=== PATIENT | male | born 1940 | race Caucasian/White ===

== ENCOUNTER 2017-06-21 11:17 | Emergency (ER) | payer OTHER ==
[~2017-06-21] VITALS: Ht 172.7 cm; Wt 110.1 kg
[~2017-06-21 11:17] MED LIST: ASPIRIN325 MG PO; Cardizem CD,Cartia X PO; Lanoxin,Digitek PO; PRINZIDE 20-121 EACH PO; TRAMADOL HCL50 MG PO; Tessalon Perle PO; Tylenol Regular Stre PO; ZITHROMAX500 MG PO; Zestoretic,Prinzide PO; [UNRECOGNIZED DRUG - OTHER] PO; predniSONE PO
[2017-06-21 12:39] LABS: HEMATOCRIT 40.2 % (38.0-50.0); HEMOGLOBIN 13.9 G/DL (12.5-16.6); MCH 31.4 PG (29.0-34.0); MCHC 34.6 G/DL (30.0-36.0); NRBC (%) 0.8 /100 WBC (0-0); PLATELET COUNT 145 K/uL (156-360); RBC DIS.WIDTH-SD 48.5 % (39-53); RED BLOOD COUNT 4.42 M/uL (4.00-5.50); WHITE BLOOD COUNT 12.7 K/uL (4.1-10.2)
[2017-06-21 12:52] LABS: CHLORIDE 106 mEq/L (99-109); POTASSIUM 4.8 mEq/L (3.7-5.4); SODIUM 139 mEq/L (136-147)
[2017-06-21 12:53] LABS: GLUCOSE 182 mg/dL (70-99)
[2017-06-21 12:57] LABS: CREATININE 1.1 mg/dL (0.6-1.3); GFR ESTIMATE (CALCULATED) > 59 mL/min/ (58.99-99999)
[2017-06-21 12:58] LABS: UREA NITROGEN (BUN) 30 mg/dL (9-23)
[2017-06-21] MEDS ORDERED: KEFLEX500 MG PO (13:35)
[2017-06-21 14:42] VITALS: BP 130/87
== END 2017-06-21 14:42 | disposition home or self-care (01) ==
LOC: EME 11:17
PROC: 3E0234Z Introduction of Serum, Toxoid and Vaccine into Muscle, Percutaneous Approach (ICD-10-PCS; principal; 2017-06-21)
DX: L03.116 Cellulitis of left lower limb (principal); L12.9 Pemphigoid, unspecified; I10 Essential (primary) hypertension; Z23 Encounter for immunization; F41.9 Anxiety disorder, unspecified; H91.90 Unspecified hearing loss, unspecified ear; Z88.0 Allergy status to penicillin
CPT/HCPCS: 80048; 85027; 99281; 99284

== ENCOUNTER 2017-06-24 10:16 | Emergency (ER) | payer OTHER ==
[~2017-06-24] VITALS: Ht 172.7 cm; Wt 127.0 kg
[~2017-06-24 10:16] MED LIST changes: +KEFLEX500 MG PO
[2017-06-24 11:33] LABS: HEMATOCRIT 41.9 % (38.0-50.0); HEMOGLOBIN 14.3 G/DL (12.5-16.6); MCH 31.4 PG (29.0-34.0); MCHC 34.1 G/DL (30.0-36.0); MCV 91.9 FL (86-99); PLATELET COUNT 133 K/uL (156-360); RBC DIS.WIDTH-CV 15.5 % (11.8-14.6); RBC DIS.WIDTH-SD 50.4 % (39-53); RED BLOOD COUNT 4.56 M/uL (4.00-5.50)
[2017-06-24 11:41] LABS: ALBUMIN 3.7 g/dL (3.2-4.8)
[2017-06-24 11:42] LABS: CHLORIDE 103 mEq/L (99-109); POTASSIUM 5.2 mEq/L (3.7-5.4); SODIUM 137 mEq/L (136-147)
[2017-06-24 11:44] LABS: GLUCOSE 232 mg/dL (70-99); TOTAL PROTEIN 5.7 g/dL (6.4-8.3)
[2017-06-24 11:46] LABS: TOTAL BILIRUBIN 0.9 mg/dL (0.0-1.0)
[2017-06-24 11:47] LABS: ALKALINE PHOSPHATASE 69 IU/L (3-129)
[2017-06-24 11:48] LABS: CREATININE 1.5 mg/dL (0.6-1.3); GFR ESTIMATE (CALCULATED) 48 mL/min/ (58.99-99999)
[2017-06-24 11:49] LABS: AST (GOT) 45 IU/L (2-34); UREA NITROGEN (BUN) 39 mg/dL (9-23)
[2017-06-24 11:50] LABS: ALT (GPT) 69 IU/L (3-49)
[2017-06-24] MEDS ORDERED: LORTAB 5-325 M1 EACH PO (15:03)
[2017-06-24 16:00] VITALS: BP 102/54
== END 2017-06-24 16:21 | disposition home or self-care (01) ==
LOC: EME 10:16
DX: L13.9 Bullous disorder, unspecified (principal); S81.802A Unspecified open wound, left lower leg, initial encounter; S81.801A Unspecified open wound, right lower leg, initial encounter; F41.9 Anxiety disorder, unspecified; I10 Essential (primary) hypertension; H91.90 Unspecified hearing loss, unspecified ear; Z88.0 Allergy status to penicillin
CPT/HCPCS: 80053; 85027; 99281; 99285

== ENCOUNTER 2017-06-27 20:44 | Inpatient (IN) | payer OTHER ==
[~2017-06-27] VITALS: Ht 175.3 cm; Wt 116.6 kg
[~2017-06-27 20:44] MED LIST changes: +LORTAB 5-325 M1 EACH PO
[2017-06-27 21:51] LABS: CARBON DIOXIDE (BICARBONATE) 20.7 MEQ/L (20-31)
[2017-06-27 21:54] LABS: BASOPHIL (%) 0.3 % (0-1); EOSINOPHIL (%) 0 % (0-5); HEMATOCRIT 35.8 % (38.0-50.0); HEMOGLOBIN 12.2 G/DL (12.5-16.6); IMMATURE GRANULOCYTE (%) 2.2 % (0.0-0.7); LYMPHOCYTE (%) 2.3 % (15-42); LYMPHOCYTE COUNT 0.4 K/uL (1.0-2.8); MCH 31.5 PG (29.0-34.0); MCHC 34.1 G/DL (30.0-36.0); MCV 92.5 FL (86-99); MONOCYTE (%) 6.1 % (3-12); NEUTROPHIL (%) 89.1 % (45-76); NEUTROPHIL COUNT 14.3 K/uL (1.8-6.4); PLATELET COUNT 105 K/uL (156-360); RBC DIS.WIDTH-CV 15.9 % (11.8-14.6); RBC DIS.WIDTH-SD 51.6 % (39-53); RED BLOOD COUNT 3.87 M/uL (4.00-5.50)
[2017-06-27 21:59] LABS: ALBUMIN 3.4 g/dL (3.2-4.8); CHLORIDE 104 mEq/L (99-109); POTASSIUM 4.5 mEq/L (3.7-5.4); SODIUM 137 mEq/L (136-147)
[2017-06-27 22:01] LABS: GLUCOSE 207 mg/dL (70-99)
[2017-06-27 22:02] LABS: TOTAL PROTEIN 5.1 g/dL (6.4-8.3)
[2017-06-27 22:05] LABS: ALKALINE PHOSPHATASE 58 IU/L (3-129); CREATININE 1.2 mg/dL (0.6-1.3); GFR ESTIMATE (CALCULATED) > 59 mL/min/ (58.99-99999); TOTAL BILIRUBIN 1.4 mg/dL (0.0-1.0)
[2017-06-27 22:06] LABS: UREA NITROGEN (BUN) 38 mg/dL (9-23)
[2017-06-27 22:07] LABS: AST (GOT) 62 IU/L (2-34)
[2017-06-27 22:08] LABS: ALT (GPT) 71 IU/L (3-49)
[2017-06-27 22:09] LABS: LIPASE 27 U/L (1.0-51.0)
[2017-06-27] MEDS ORDERED: DELTASONE20 M1 PO (22:21)
[2017-06-27] MEDS ORDERED: KEFLEX500 MG PO (22:22)
[2017-06-27] MEDS ORDERED: HYDROCODON-ACE1 EAC7 PO (22:22)
[2017-06-27] MEDS ORDERED: ATENOLOL50 MG PO (22:23)
[2017-06-27] MEDS ORDERED: LEVOTHYROXINE100 MCG PO (22:23)
[2017-06-27] MEDS ORDERED: ASPIR 8181 M1 PO (22:23)
[2017-06-27 22:33] LABS: APPEARANCE CLEAR ((CLEAR)); BILIRUBIN NEGATIVE; BLOOD SMALL; COLOR YELLOW ((YELLOW)); GLUCOSE (STRIP) 50; KETONES 20; LEUKOCYTES NEGATIVE; NITRITE NEGATIVE; PROTEIN (STRIP) NEGATIVE; SPECIFIC GRAVITY 1.023 (1.000-1.030); UROBILINOGEN 0.2 MG/DL (0.2-1.0)
[2017-06-27 22:41] LABS: BACTERIA NONE SEEN /HPF; EPITHELIAL CELLS RARE /HPF; MUCUS TRACE /LPF; RED BLOOD CELLS 0-5 /HPF (0-5); UCUL ADDED? NO; WHITE BLOOD CELLS 0-5 /HPF (0-5)
[2017-06-28 08:14] VITALS: BP 112/66; BP 163/78
[2017-06-28 09:37] LABS: BASOPHIL (%) 0.1 % (0-1); EOSINOPHIL (%) 0 % (0-5); HEMATOCRIT 31.9 % (38.0-50.0); HEMOGLOBIN 10.5 G/DL (12.5-16.6); IMMATURE GRANULOCYTE (%) 2.4 % (0.0-0.7); LYMPHOCYTE (%) 3.1 % (15-42); LYMPHOCYTE COUNT 0.3 K/uL (1.0-2.8); MCH 31.7 PG (29.0-34.0); MCHC 32.9 G/DL (30.0-36.0); MCV 96.4 FL (86-99); MONOCYTE (%) 5.9 % (3-12); MONOCYTE COUNT 0.6 K/uL (0-0.8); NEUTROPHIL (%) 88.5 % (45-76); NEUTROPHIL COUNT 8.9 K/uL (1.8-6.4); NRBC (%) 0.8 /100 WBC (0-0); RBC DIS.WIDTH-CV 16.3 % (11.8-14.6); RBC DIS.WIDTH-SD 56.7 % (39-53); RED BLOOD COUNT 3.31 M/uL (4.00-5.50); WHITE BLOOD COUNT 10.1 K/uL (4.1-10.2)
[2017-06-28 09:59] LABS: PLAT.SUFFICIENCY DECREASED; PLATELET COUNT 77 K/uL (156-360)
[2017-06-28 10:03] LABS: CHLORIDE 108 MEQ/L (99-109); CREATININE 1.1 MG/DL (0.6-1.3); GFR ESTIMATE (CALCULATED) > 59 mL/min/ (58.99-99999); GLUCOSE 210 mg/dL (70-99); POTASSIUM 4.5 MEQ/L (3.7-5.4); SODIUM 139 MEQ/L (136-147); UREA NITROGEN (BUN) 30 mg/dL (9-23)
[2017-06-28 12:41] VITALS: BP 122/69
[2017-06-28 13:48] VITALS: BP 116/72
[2017-06-28 16:00] VITALS: BP 127/72
[2017-06-28 19:30] VITALS: BP 124/89
[2017-06-28 23:56] VITALS: BP 117/75
[2017-06-29 02:58] VITALS: BP 145/72
[2017-06-29 05:39] LABS: HEMATOCRIT 33.8 % (38.0-50.0); HEMOGLOBIN 11.1 G/DL (12.5-16.6); MCH 31.2 PG (29.0-34.0); MCHC 32.8 G/DL (30.0-36.0); MCV 94.9 FL (86-99); NRBC (%) 0.4 /100 WBC (0-0); PLATELET COUNT 95 K/uL (156-360); RBC DIS.WIDTH-CV 16.1 % (11.8-14.6); RBC DIS.WIDTH-SD 55.7 % (39-53); RED BLOOD COUNT 3.56 M/uL (4.00-5.50); WHITE BLOOD COUNT 10.5 K/uL (4.1-10.2)
[2017-06-29 06:04] LABS: CHLORIDE 109 MEQ/L (99-109); CREATININE 0.8 MG/DL (0.6-1.3); GFR ESTIMATE (CALCULATED) > 59 mL/min/ (58.99-99999); GLUCOSE 186 mg/dL (70-99); POTASSIUM 4.2 MEQ/L (3.7-5.4); SODIUM 138 MEQ/L (136-147); UREA NITROGEN (BUN) 20 mg/dL (9-23)
[2017-06-29 08:59] VITALS: BP 154/76
[2017-06-29 13:32] VITALS: BP 149/89
[2017-06-29 15:22] VITALS: BP 152/81
[2017-06-29 19:05] VITALS: BP 145/90
[2017-06-29 23:02] VITALS: BP 147/86
[2017-06-30 02:47] VITALS: BP 143/89
[2017-06-30 08:15] VITALS: BP 131/74
[2017-06-30 10:19] LABS: HEMATOCRIT 37.3 % (38.0-50.0); HEMOGLOBIN 12.1 G/DL (12.5-16.6); MCH 30.3 PG (29.0-34.0); MCHC 32.4 G/DL (30.0-36.0); MCV 93.5 FL (86-99); NRBC (%) 0.6 /100 WBC (0-0); RBC DIS.WIDTH-CV 15.9 % (11.8-14.6); RBC DIS.WIDTH-SD 53.8 % (39-53); RED BLOOD COUNT 3.99 M/uL (4.00-5.50); WHITE BLOOD COUNT 17.1 K/uL (4.1-10.2)
[2017-06-30 10:25] LABS: PLATELET COUNT 171 K/uL (156-360)
[2017-06-30 10:59] LABS: ALBUMIN 3.2 G/DL (3.2-4.8); ALKALINE PHOSPHATASE 49 IU/L (3-129); ALT (GPT) 43 IU/L (3-49); AST (GOT) 22 IU/L (2-34); CHLORIDE 107 MEQ/L (99-109); GFR ESTIMATE (CALCULATED) > 59 mL/min/ (58.99-99999); GLUCOSE 230 mg/dL (70-99); POTASSIUM 4.4 MEQ/L (3.7-5.4); SODIUM 136 MEQ/L (136-147); TOTAL BILIRUBIN 0.9 MG/DL (0.0-1.0); TOTAL PROTEIN 5.4 G/DL (6.4-8.3); UREA NITROGEN (BUN) 27 mg/dL (9-23)
[2017-06-30 11:35] VITALS: BP 128/69
[2017-06-30 19:59] VITALS: BP 107/67
[2017-06-30 23:18] VITALS: BP 135/74
[2017-07-01 04:48] VITALS: BP 133/71
[2017-07-01 06:18] LABS: ALBUMIN 2.8 G/DL (3.2-4.8); ALKALINE PHOSPHATASE 43 IU/L (3-129); ALT (GPT) 36 IU/L (3-49); AST (GOT) 24 IU/L (2-34); CHLORIDE 109 MEQ/L (99-109); CREATININE 1.1 MG/DL (0.6-1.3); GFR ESTIMATE (CALCULATED) > 59 mL/min/ (58.99-99999); GLUCOSE 206 mg/dL (70-99); POTASSIUM 4.4 MEQ/L (3.7-5.4); SODIUM 139 MEQ/L (136-147); TOTAL BILIRUBIN 0.8 MG/DL (0.0-1.0); TOTAL PROTEIN 4.7 G/DL (6.4-8.3); UREA NITROGEN (BUN) 33 mg/dL (9-23)
[2017-07-01 06:19] LABS: HEMATOCRIT 34.4 % (38.0-50.0); HEMOGLOBIN 11.3 G/DL (12.5-16.6); MCH 31.4 PG (29.0-34.0); MCHC 32.8 G/DL (30.0-36.0); MCV 95.6 FL (86-99); NRBC (%) 0.7 /100 WBC (0-0); PLATELET COUNT 144 K/uL (156-360); RBC DIS.WIDTH-CV 15.9 % (11.8-14.6); RBC DIS.WIDTH-SD 55.4 % (39-53); WHITE BLOOD COUNT 11.8 K/uL (4.1-10.2)
[2017-07-01 08:47] VITALS: BP 132/81
[2017-07-01 10:48] VITALS: BP 137/81
[2017-07-01 15:19] VITALS: BP 144/87
[2017-07-01 19:40] VITALS: BP 113/65
[2017-07-01 23:44] VITALS: BP 116/78
[2017-07-02 04:24] VITALS: BP 135/90
[2017-07-02 06:01] LABS: HEMATOCRIT 32.2 % (38.0-50.0); HEMOGLOBIN 10.8 G/DL (12.5-16.6); MCH 30.9 PG (29.0-34.0); MCHC 33.5 G/DL (30.0-36.0); MCV 92.3 FL (86-99); NRBC (%) 0.9 /100 WBC (0-0); PLATELET COUNT 133 K/uL (156-360); RBC DIS.WIDTH-CV 15.8 % (11.8-14.6); RBC DIS.WIDTH-SD 52.5 % (39-53); RED BLOOD COUNT 3.49 M/uL (4.00-5.50); WHITE BLOOD COUNT 10.6 K/uL (4.1-10.2)
[2017-07-02 06:21] LABS: CHLORIDE 108 MEQ/L (99-109); CREATININE 0.8 MG/DL (0.6-1.3); GFR ESTIMATE (CALCULATED) > 59 mL/min/ (58.99-99999); GLUCOSE 182 mg/dL (70-99); POTASSIUM 4.3 MEQ/L (3.7-5.4); SODIUM 139 MEQ/L (136-147); UREA NITROGEN (BUN) 26 mg/dL (9-23)
[2017-07-02 06:22] LABS: ALBUMIN 2.6 G/DL (3.2-4.8); ALKALINE PHOSPHATASE 41 IU/L (3-129); ALT (GPT) 32 IU/L (3-49); AST (GOT) 20 IU/L (2-34); CHLORIDE 108 MEQ/L (99-109); CREATININE 0.8 MG/DL (0.6-1.3); GFR ESTIMATE (CALCULATED) > 59 mL/min/ (58.99-99999); GLUCOSE 181 mg/dL (70-99); POTASSIUM 4.2 MEQ/L (3.7-5.4); SODIUM 139 MEQ/L (136-147); TOTAL BILIRUBIN 0.9 MG/DL (0.0-1.0); TOTAL PROTEIN 4.5 G/DL (6.4-8.3); UREA NITROGEN (BUN) 26 mg/dL (9-23)
[2017-07-02 07:50] LABS: DIGOXIN 0.9 ng/mL (0.8-2.0)
[2017-07-02 08:18] VITALS: BP 102/61
[2017-07-02 12:53] VITALS: BP 108/64
[2017-07-02 15:43] VITALS: BP 104/58
[2017-07-02 21:15] VITALS: BP 127/92
[2017-07-03 00:30] VITALS: BP 133/87
[2017-07-03 06:49] LABS: HEMATOCRIT 34.4 % (38.0-50.0); HEMOGLOBIN 11.7 G/DL (12.5-16.6); MCH 31.3 PG (29.0-34.0); NRBC (%) 1.7 /100 WBC (0-0); PLATELET COUNT 145 K/uL (156-360); RBC DIS.WIDTH-CV 15.9 % (11.8-14.6); RBC DIS.WIDTH-SD 52.5 % (39-53); RED BLOOD COUNT 3.74 M/uL (4.00-5.50)
[2017-07-03 07:24] LABS: ALBUMIN 2.8 G/DL (3.2-4.8); ALKALINE PHOSPHATASE 46 IU/L (3-129); ALT (GPT) 33 IU/L (3-49); AST (GOT) 25 IU/L (2-34); CHLORIDE 107 MEQ/L (99-109); CREATININE 0.7 MG/DL (0.6-1.3); GFR ESTIMATE (CALCULATED) > 59 mL/min/ (58.99-99999); GLUCOSE 158 mg/dL (70-99); POTASSIUM 4.1 MEQ/L (3.7-5.4); SODIUM 140 MEQ/L (136-147); TOTAL PROTEIN 4.7 G/DL (6.4-8.3); UREA NITROGEN (BUN) 21 mg/dL (9-23)
[2017-07-03 07:29] LABS: TOTAL BILIRUBIN 1.6 MG/DL (0.0-1.0)
[2017-07-03 07:57] VITALS: BP 139/81
[2017-07-03 09:35] LABS: TROP-I INTERPRETATION NEGATIVE; TROPONIN-I 0.05 ng/mL (0.0-0.30)
[2017-07-03 12:12] VITALS: BP 139/87
[2017-07-03 16:11] VITALS: BP 141/86
[2017-07-03 19:48] VITALS: BP 139/86
[2017-07-03 22:40] VITALS: BP 132/70
[2017-07-04 04:23] VITALS: BP 142/70
[2017-07-04 07:31] LABS: HEMOGLOBIN 10.6 G/DL (12.5-16.6); MCH 30.8 PG (29.0-34.0); MCHC 33.1 G/DL (30.0-36.0); NRBC (%) 0.7 /100 WBC (0-0); PLATELET COUNT 118 K/uL (156-360); RBC DIS.WIDTH-CV 15.5 % (11.8-14.6); RBC DIS.WIDTH-SD 52.1 % (39-53); RED BLOOD COUNT 3.44 M/uL (4.00-5.50); WHITE BLOOD COUNT 8.7 K/uL (4.1-10.2)
[2017-07-04 07:33] VITALS: BP 131/87
[2017-07-04 07:59] LABS: ALBUMIN 2.4 G/DL (3.2-4.8); ALKALINE PHOSPHATASE 46 IU/L (3-129); ALT (GPT) 26 IU/L (3-49); AST (GOT) 22 IU/L (2-34); CHLORIDE 104 MEQ/L (99-109); CREATININE 0.6 MG/DL (0.6-1.3); GFR ESTIMATE (CALCULATED) > 59 mL/min/ (58.99-99999); GLUCOSE 126 mg/dL (70-99); POTASSIUM 3.8 MEQ/L (3.7-5.4); SODIUM 137 MEQ/L (136-147); TOTAL BILIRUBIN 1.6 MG/DL (0.0-1.0); TOTAL PROTEIN 4.1 G/DL (6.4-8.3); UREA NITROGEN (BUN) 15 mg/dL (9-23)
[2017-07-04 11:24] VITALS: BP 140/95
[2017-07-04 16:45] VITALS: BP 139/86
[2017-07-04 20:11] VITALS: BP 136/89
[2017-07-04 23:59] VITALS: BP 118/81
[2017-07-05] VITALS (7 sets, daily range): BP systolic 132–158; BP diastolic 66–104
[2017-07-05 05:49] LABS: ALBUMIN 2.3 G/DL (3.2-4.8); ALKALINE PHOSPHATASE 45 IU/L (3-129); ALT (GPT) 27 IU/L (3-49); AST (GOT) 21 IU/L (2-34); CHLORIDE 106 MEQ/L (99-109); CREATININE 0.6 MG/DL (0.6-1.3); GFR ESTIMATE (CALCULATED) > 59 mL/min/ (58.99-99999); GLUCOSE 126 mg/dL (70-99); POTASSIUM 3.9 MEQ/L (3.7-5.4); SODIUM 141 MEQ/L (136-147); TOTAL BILIRUBIN 1.5 MG/DL (0.0-1.0); TOTAL PROTEIN 4.1 G/DL (6.4-8.3); UREA NITROGEN (BUN) 18 mg/dL (9-23)
[2017-07-06 03:25] VITALS: BP 128/77
[2017-07-06 07:25] VITALS: BP 157/98
[2017-07-06 08:46] LABS: ALBUMIN 2.4 G/DL (3.2-4.8); ALKALINE PHOSPHATASE 55 IU/L (3-129); ALT (GPT) 42 IU/L (3-49); CHLORIDE 104 MEQ/L (99-109); CREATININE 0.6 MG/DL (0.6-1.3); GFR ESTIMATE (CALCULATED) > 59 mL/min/ (58.99-99999); GLUCOSE 119 mg/dL (70-99); POTASSIUM 3.8 MEQ/L (3.7-5.4); SODIUM 141 MEQ/L (136-147); TOTAL PROTEIN 4.3 G/DL (6.4-8.3); UREA NITROGEN (BUN) 16 mg/dL (9-23)
[2017-07-06 08:48] LABS: AST (GOT) 43 IU/L (2-34); TOTAL BILIRUBIN 2.2 MG/DL (0.0-1.0)
[2017-07-06 13:08] LABS: BASE EXCESS 2.8 mEq/L (-3 to +3); BICARBONATE 25.3 mEq/L (22-26); CARBOXY HGB 2.8 % (0-5); METHEMOGLOBIN 1.5 % (0-1.5); PCO2 31 mm Hg (35-45); PO2 69 mm Hg (80-100); pH 7.52 (7.35-7.45)
[2017-07-06 13:09] LABS: COMMENTS - BLOOD GASES A+C+; DEVICE NCANNULA; O2 FLOW 2 L/MIN; SITE RRAD; TOTAL RESP RATE 20 resp/min
[2017-07-06 13:49] VITALS: BP 131/81
[2017-07-06 16:05] LABS: BASOPHIL (%) 0.1 % (0-1); EOSINOPHIL (%) 0.7 % (0-5); EOSINOPHIL COUNT 0.1 K/uL (0-0.3); HEMOGLOBIN 11.3 G/DL (12.5-16.6); IMMATURE GRANULOCYTE (%) 1.9 % (0.0-0.7); LYMPHOCYTE (%) 3.1 % (15-42); LYMPHOCYTE COUNT 0.3 K/uL (1.0-2.8); MCH 31.1 PG (29.0-34.0); MCHC 32.3 G/DL (30.0-36.0); MCV 96.4 FL (86-99); MONOCYTE (%) 4.9 % (3-12); MONOCYTE COUNT 0.5 K/uL (0-0.8); NEUTROPHIL (%) 89.3 % (45-76); NEUTROPHIL COUNT 9.6 K/uL (1.8-6.4); NRBC (%) 0.4 /100 WBC (0-0); PLATELET COUNT 153 K/uL (156-360); RBC DIS.WIDTH-CV 15.6 % (11.8-14.6); RBC DIS.WIDTH-SD 55.3 % (39-53); RED BLOOD COUNT 3.63 M/uL (4.00-5.50); WHITE BLOOD COUNT 10.8 K/uL (4.1-10.2)
[2017-07-06 21:14] VITALS: BP 132/88
[2017-07-07] VITALS (7 sets, daily range): BP systolic 110–140; BP diastolic 67–91
[2017-07-07 06:57] LABS: HEMATOCRIT 31.1 % (38.0-50.0); HEMOGLOBIN 10.2 G/DL (12.5-16.6); MCH 30.2 PG (29.0-34.0); MCHC 32.8 G/DL (30.0-36.0); NRBC (%) 0.3 /100 WBC (0-0); PLATELET COUNT 152 K/uL (156-360); RBC DIS.WIDTH-CV 14.9 % (11.8-14.6); RBC DIS.WIDTH-SD 50.4 % (39-53); RED BLOOD COUNT 3.38 M/uL (4.00-5.50)
[2017-07-07 07:07] LABS: ALBUMIN 2.2 G/DL (3.2-4.8); ALKALINE PHOSPHATASE 54 IU/L (3-129); ALT (GPT) 37 IU/L (3-49); AST (GOT) 39 IU/L (2-34); CHLORIDE 105 MEQ/L (99-109); CREATININE 0.5 MG/DL (0.6-1.3); GFR ESTIMATE (CALCULATED) > 59 mL/min/ (58.99-99999); GLUCOSE 104 mg/dL (70-99); POTASSIUM 3.7 MEQ/L (3.7-5.4); SODIUM 141 MEQ/L (136-147); TOTAL PROTEIN 3.8 G/DL (6.4-8.3); UREA NITROGEN (BUN) 14 mg/dL (9-23)
[2017-07-07 07:09] LABS: TOTAL BILIRUBIN 1.6 MG/DL (0.0-1.0)
[2017-07-08 03:45] VITALS: BP 139/77
[2017-07-08 05:35] LABS: HEMATOCRIT 31.3 % (38.0-50.0); HEMOGLOBIN 10.2 G/DL (12.5-16.6); MCH 30.4 PG (29.0-34.0); MCHC 32.6 G/DL (30.0-36.0); MCV 93.2 FL (86-99); NRBC (%) 0.4 /100 WBC (0-0); PLATELET COUNT 170 K/uL (156-360); RBC DIS.WIDTH-CV 15.2 % (11.8-14.6); RBC DIS.WIDTH-SD 51.8 % (39-53); RED BLOOD COUNT 3.36 M/uL (4.00-5.50); WHITE BLOOD COUNT 10.1 K/uL (4.1-10.2)
[2017-07-08 06:04] LABS: ALBUMIN 2.1 G/DL (3.2-4.8); ALKALINE PHOSPHATASE 64 IU/L (3-129); ALT (GPT) 51 IU/L (3-49); CHLORIDE 106 MEQ/L (99-109); CREATININE 0.5 MG/DL (0.6-1.3); GFR ESTIMATE (CALCULATED) > 59 mL/min/ (58.99-99999); GLUCOSE 96 mg/dL (70-99); POTASSIUM 3.7 MEQ/L (3.7-5.4); SODIUM 143 MEQ/L (136-147); TOTAL BILIRUBIN 1.9 MG/DL (0.0-1.0); TOTAL PROTEIN 3.8 G/DL (6.4-8.3); UREA NITROGEN (BUN) 13 mg/dL (9-23)
[2017-07-08 06:05] LABS: AST (GOT) 63 IU/L (2-34)
[2017-07-08 08:30] VITALS: BP 118/82
[2017-07-08 12:04] VITALS: BP 149/69
[2017-07-08 16:58] VITALS: BP 137/87
[2017-07-08 19:30] VITALS: BP 139/87
[2017-07-08 23:00] VITALS: BP 151/92
[2017-07-09 03:30] VITALS: BP 144/84
[2017-07-09 06:14] LABS: HEMATOCRIT 29.5 % (38.0-50.0); HEMOGLOBIN 9.7 G/DL (12.5-16.6); MCH 30.1 PG (29.0-34.0); MCHC 32.9 G/DL (30.0-36.0); MCV 91.6 FL (86-99); NRBC (%) 0.3 /100 WBC (0-0); PLATELET COUNT 188 K/uL (156-360); RBC DIS.WIDTH-CV 14.7 % (11.8-14.6); RBC DIS.WIDTH-SD 49.3 % (39-53); RED BLOOD COUNT 3.22 M/uL (4.00-5.50); WHITE BLOOD COUNT 11.3 K/uL (4.1-10.2)
[2017-07-09 06:46] LABS: ALBUMIN 2.2 G/DL (3.2-4.8); ALKALINE PHOSPHATASE 63 IU/L (3-129); ALT (GPT) 36 IU/L (3-49); CHLORIDE 105 MEQ/L (99-109); CREATININE 0.6 MG/DL (0.6-1.3); GFR ESTIMATE (CALCULATED) > 59 mL/min/ (58.99-99999); SODIUM 141 MEQ/L (136-147); TOTAL PROTEIN 4.1 G/DL (6.4-8.3); UREA NITROGEN (BUN) 16 mg/dL (9-23)
[2017-07-09 06:50] LABS: GLUCOSE 151 mg/dL (70-99); POTASSIUM 4.2 MEQ/L (3.7-5.4); TOTAL BILIRUBIN 1.2 MG/DL (0.0-1.0)
[2017-07-09 06:51] LABS: AST (GOT) 32 IU/L (2-34)
[2017-07-09 07:20] VITALS: BP 132/83
[2017-07-09 07:35] LABS: INTER. NORMALIZED RATIO 1.4
[2017-07-09 07:38] LABS: PTT 26.8 SEC (25-37)
[2017-07-09 07:56] LABS: DIRECT BILIRUBIN 0.2 mg/dL (0.0-0.3); MAGNESIUM 1.8 mg/dl (1.3-2.7); PHOSPHORUS 3.2 mg/dL (2.5-4.9); PREALBUMIN 7.4 mg/dL (10-40)
[2017-07-09 08:09] LABS: TRIGLYCERIDES 149 MG/DL (Normal: <150)
[2017-07-09 12:19] VITALS: BP 153/79
[2017-07-09 15:00] VITALS: BP 149/93
[2017-07-09 19:00] VITALS: BP 163/75
[2017-07-09 23:00] VITALS: BP 164/75
[2017-07-10 03:00] VITALS: BP 127/73
[2017-07-10 06:34] LABS: ALBUMIN 2.1 G/DL (3.2-4.8); ALKALINE PHOSPHATASE 60 IU/L (3-129); ALT (GPT) 31 IU/L (3-49); AST (GOT) 19 IU/L (2-34); CHLORIDE 109 MEQ/L (99-109); CREATININE 0.6 MG/DL (0.6-1.3); GFR ESTIMATE (CALCULATED) > 59 mL/min/ (58.99-99999); MAGNESIUM 1.9 mg/dl (1.3-2.7); PHOSPHORUS 2.6 mg/dL (2.5-4.9); POTASSIUM 3.7 MEQ/L (3.7-5.4); SODIUM 141 MEQ/L (136-147); TOTAL PROTEIN 4.4 G/DL (6.4-8.3); UREA NITROGEN (BUN) 24 mg/dL (9-23)
[2017-07-10 06:38] LABS: GLUCOSE 271 mg/dL (70-99); HEMATOCRIT 31.4 % (38.0-50.0); HEMOGLOBIN 10.4 G/DL (12.5-16.6); MCH 30.5 PG (29.0-34.0); MCHC 33.1 G/DL (30.0-36.0); MCV 92.1 FL (86-99); NRBC (%) 0.8 /100 WBC (0-0); PLATELET COUNT 195 K/uL (156-360); RBC DIS.WIDTH-CV 14.6 % (11.8-14.6); RBC DIS.WIDTH-SD 49.9 % (39-53); RED BLOOD COUNT 3.41 M/uL (4.00-5.50); TOTAL BILIRUBIN 0.9 MG/DL (0.0-1.0); WHITE BLOOD COUNT 10.6 K/uL (4.1-10.2)
[2017-07-10 07:30] VITALS: BP 142/93
[2017-07-10 11:53] VITALS: BP 150/113
[2017-07-10 16:58] VITALS: BP 145/89
[2017-07-10 20:01] VITALS: BP 160/90
[2017-07-10 23:31] VITALS: BP 146/82
[2017-07-11] VITALS (8 sets, daily range): BP systolic 126–1438; BP diastolic 76–97
[2017-07-11 06:21] LABS: HEMATOCRIT 32.4 % (38.0-50.0); HEMOGLOBIN 10.5 G/DL (12.5-16.6); MCH 29.8 PG (29.0-34.0); MCHC 32.4 G/DL (30.0-36.0); NRBC (%) 2.2 /100 WBC (0-0); PLATELET COUNT 197 K/uL (156-360); RBC DIS.WIDTH-CV 14.9 % (11.8-14.6); RBC DIS.WIDTH-SD 49.8 % (39-53); RED BLOOD COUNT 3.52 M/uL (4.00-5.50); WHITE BLOOD COUNT 12.6 K/uL (4.1-10.2)
[2017-07-11 06:54] LABS: ALBUMIN 2.3 G/DL (3.2-4.8); ALKALINE PHOSPHATASE 66 IU/L (3-129); ALT (GPT) 28 IU/L (3-49); AST (GOT) 19 IU/L (2-34); CHLORIDE 111 MEQ/L (99-109); CREATININE 0.5 MG/DL (0.6-1.3); GFR ESTIMATE (CALCULATED) > 59 mL/min/ (58.99-99999); GLUCOSE 338 mg/dL (70-99); MAGNESIUM 2.1 mg/dl (1.3-2.7); PHOSPHORUS 2.7 mg/dL (2.5-4.9); SODIUM 143 MEQ/L (136-147); TOTAL PROTEIN 4.5 G/DL (6.4-8.3); UREA NITROGEN (BUN) 27 mg/dL (9-23)
[2017-07-12 04:14] VITALS: BP 147/99
[2017-07-12 06:05] LABS: HEMATOCRIT 33.9 % (38.0-50.0); HEMOGLOBIN 10.8 G/DL (12.5-16.6); MCH 29.8 PG (29.0-34.0); MCHC 31.9 G/DL (30.0-36.0); MCV 93.6 FL (86-99); NRBC (%) 1.8 /100 WBC (0-0); PLATELET COUNT 169 K/uL (156-360); RBC DIS.WIDTH-CV 14.9 % (11.8-14.6); RBC DIS.WIDTH-SD 50.5 % (39-53); RED BLOOD COUNT 3.62 M/uL (4.00-5.50); WHITE BLOOD COUNT 13.2 K/uL (4.1-10.2)
[2017-07-12 06:39] LABS: ALBUMIN 2.5 G/DL (3.2-4.8); ALKALINE PHOSPHATASE 75 IU/L (3-129); ALT (GPT) 31 IU/L (3-49); AST (GOT) 27 IU/L (2-34); CHLORIDE 113 MEQ/L (99-109); CREATININE 0.6 MG/DL (0.6-1.3); DIRECT BILIRUBIN 0.5 mg/dL (0.0-0.3); GFR ESTIMATE (CALCULATED) > 59 mL/min/ (58.99-99999); GLUCOSE 296 mg/dL (70-99); MAGNESIUM 2.2 mg/dl (1.3-2.7); PHOSPHORUS 2.6 mg/dL (2.5-4.9); POTASSIUM 4.2 MEQ/L (3.7-5.4); PREALBUMIN 16.6 mg/dL (10-40); SODIUM 143 MEQ/L (136-147); TOTAL BILIRUBIN 1.2 MG/DL (0.0-1.0); TOTAL PROTEIN 4.6 G/DL (6.4-8.3); TRIGLYCERIDES 215 MG/DL (Normal: <150); UREA NITROGEN (BUN) 27 mg/dL (9-23)
[2017-07-12 07:12] LABS: ANISOCYTOSIS 2+; BAND NEUTROPHILS 2.7 % (0-8.0); BURR CELLS 1+; EOSINOPHIL ABS CT 0; LYMPHOCYTES 0.9 % (15.0-45.0); MACROCYTES 1+; METAMYELOCYTES 2.8 %; MICROCYTOSIS 2+; MONOCYTES 5.5 % (0-9.0); NUCLEATED RBC'S 0.9; PLAT.SUFFICIENCY ADEQUATE; POIKILOCYTOSIS 1+; POLYCHROMASIA 1+; SEG.NEUTROPHILS 88.1 % (46.0-76.0)
[2017-07-12 07:35] VITALS: BP 153/92
[2017-07-12 13:03] VITALS: BP 135/86
[2017-07-12 17:49] VITALS: BP 117/70
[2017-07-12 19:52] VITALS: BP 116/83
[2017-07-13 00:10] VITALS: BP 144/86
[2017-07-13 04:19] VITALS: BP 125/90
[2017-07-13 05:54] LABS: CHLORIDE 110 MEQ/L (99-109); CREATININE 0.5 MG/DL (0.6-1.3); GFR ESTIMATE (CALCULATED) > 59 mL/min/ (58.99-99999); GLUCOSE 247 mg/dL (70-99); MAGNESIUM 1.9 mg/dl (1.3-2.7); PHOSPHORUS 2.8 mg/dL (2.5-4.9); POTASSIUM 4.1 MEQ/L (3.7-5.4); SODIUM 139 MEQ/L (136-147); UREA NITROGEN (BUN) 25 mg/dL (9-23)
[2017-07-13 05:58] LABS: HEMATOCRIT 35.3 % (38.0-50.0); HEMOGLOBIN 11.6 G/DL (12.5-16.6); MCH 30.7 PG (29.0-34.0); MCHC 32.9 G/DL (30.0-36.0); MCV 93.4 FL (86-99); NRBC (%) 1.3 /100 WBC (0-0); PLATELET COUNT 151 K/uL (156-360); RBC DIS.WIDTH-CV 15.3 % (11.8-14.6); RBC DIS.WIDTH-SD 50.5 % (39-53); RED BLOOD COUNT 3.78 M/uL (4.00-5.50); WHITE BLOOD COUNT 10.9 K/uL (4.1-10.2)
[2017-07-13 07:52] VITALS: BP 132/85
[2017-07-13 16:00] VITALS: BP 154/88
[2017-07-13 17:14] LABS: 24 HR VOLUME 4600 MLS; URINE UREA NITROGEN 24978 MG/24 HR
[2017-07-13 22:29] VITALS: BP 124/76
[2017-07-14 04:24] VITALS: BP 117/68
[2017-07-14 06:32] LABS: CHLORIDE 109 MEQ/L (99-109); CREATININE 0.4 MG/DL (0.6-1.3); GFR ESTIMATE (CALCULATED) > 59 mL/min/ (58.99-99999); GLUCOSE 182 mg/dL (70-99); MAGNESIUM 1.9 mg/dl (1.3-2.7); PHOSPHORUS 3.6 mg/dL (2.5-4.9); POTASSIUM 4.1 MEQ/L (3.7-5.4); SODIUM 139 MEQ/L (136-147); UREA NITROGEN (BUN) 28 mg/dL (9-23)
[2017-07-14 07:10] VITALS: BP 127/80
[2017-07-14 11:48] VITALS: BP 118/86
[2017-07-14 16:15] VITALS: BP 128/85
[2017-07-14 19:00] VITALS: BP 121/80
[2017-07-15] VITALS: BP 122/78
[2017-07-15 03:47] VITALS: BP 119/78
[2017-07-15 05:23] LABS: HEMATOCRIT 35.6 % (38.0-50.0); HEMOGLOBIN 11.7 G/DL (12.5-16.6); MCH 30.5 PG (29.0-34.0); MCHC 32.9 G/DL (30.0-36.0); MCV 92.7 FL (86-99); NRBC (%) 0.4 /100 WBC (0-0); PLATELET COUNT 177 K/uL (156-360); RBC DIS.WIDTH-SD 52.9 % (39-53); RED BLOOD COUNT 3.84 M/uL (4.00-5.50); WHITE BLOOD COUNT 11.7 K/uL (4.1-10.2)
[2017-07-15 05:41] LABS: CHLORIDE 112 MEQ/L (99-109); CREATININE 0.5 MG/DL (0.6-1.3); GFR ESTIMATE (CALCULATED) > 59 mL/min/ (58.99-99999); GLUCOSE 168 mg/dL (70-99); MAGNESIUM 1.9 mg/dl (1.3-2.7); PHOSPHORUS 3.3 mg/dL (2.5-4.9); POTASSIUM 4.3 MEQ/L (3.7-5.4); SODIUM 139 MEQ/L (136-147); UREA NITROGEN (BUN) 31 mg/dL (9-23)
[2017-07-15 07:39] VITALS: BP 128/94
[2017-07-15 12:05] VITALS: BP 121/90
[2017-07-15 15:52] VITALS: BP 137/96
[2017-07-15 19:23] VITALS: BP 135/84
[2017-07-16 00:16] VITALS: BP 118/72
[2017-07-16 01:55] VITALS: BP 138/72
[2017-07-16 07:51] LABS: CHLORIDE 109 MEQ/L (99-109); CREATININE 0.6 MG/DL (0.6-1.3); GFR ESTIMATE (CALCULATED) > 59 mL/min/ (58.99-99999); PHOSPHORUS 3.1 mg/dL (2.5-4.9); SODIUM 138 MEQ/L (136-147); UREA NITROGEN (BUN) 33 mg/dL (9-23)
[2017-07-16 07:55] LABS: GLUCOSE 100 mg/dL (70-99)
[2017-07-16 08:03] VITALS: BP 136/83
[2017-07-16 08:48] LABS: HEMATOCRIT 38.6 % (38.0-50.0); HEMOGLOBIN 12.6 G/DL (12.5-16.6); MCH 30.9 PG (29.0-34.0); MCHC 32.6 G/DL (30.0-36.0); MCV 94.6 FL (86-99); NRBC (%) 1.5 /100 WBC (0-0); PLATELET COUNT 209 K/uL (156-360); RBC DIS.WIDTH-CV 16.4 % (11.8-14.6); RBC DIS.WIDTH-SD 55.7 % (39-53); RED BLOOD COUNT 4.08 M/uL (4.00-5.50); WHITE BLOOD COUNT 13.9 K/uL (4.1-10.2)
[2017-07-16 09:12] LABS: POTASSIUM 4.2 MEQ/L (3.7-5.4)
[2017-07-16 17:06] LABS: HEMATOCRIT 38.7 % (38.0-50.0); MCH 30.5 PG (29.0-34.0); MCV 98.2 FL (86-99); NRBC (%) 1.4 /100 WBC (0-0); PLATELET COUNT 232 K/uL (156-360); RBC DIS.WIDTH-SD 56.8 % (39-53); RED BLOOD COUNT 3.94 M/uL (4.00-5.50); WHITE BLOOD COUNT 19.7 K/uL (4.1-10.2)
[2017-07-16 17:18] LABS: CHLORIDE 112 MEQ/L (99-109); SODIUM 141 MEQ/L (136-147)
[2017-07-16 17:23] LABS: CREATININE 0.7 MG/DL (0.6-1.3); GFR ESTIMATE (CALCULATED) > 59 mL/min/ (58.99-99999); UREA NITROGEN (BUN) 36 mg/dL (9-23)
[2017-07-16 17:34] LABS: GLUCOSE 156 mg/dL (70-99)
[2017-07-16 22:15] VITALS: BP 114/90
[2017-07-16 23:00] VITALS: BP 96/75
[2017-07-16 23:30] VITALS: BP 106/72
[2017-07-17] VITALS (30 sets, daily range): BP systolic 84–136; BP diastolic 56–7784
[2017-07-17 00:44] LABS: BASOPHIL (%) 0.1 % (0-1); EOSINOPHIL (%) 0 % (0-5); HEMATOCRIT 30.7 % (38.0-50.0); HEMOGLOBIN 9.9 G/DL (12.5-16.6); LYMPHOCYTE (%) 3.1 % (15-42); LYMPHOCYTE COUNT 0.5 K/uL (1.0-2.8); MCH 31.1 PG (29.0-34.0); MCHC 32.2 G/DL (30.0-36.0); MCV 96.5 FL (86-99); MONOCYTE (%) 6.8 % (3-12); MONOCYTE COUNT 1.1 K/uL (0-0.8); NEUTROPHIL COUNT 13.3 K/uL (1.8-6.4); NRBC (%) 0.3 /100 WBC (0-0); PLATELET COUNT 196 K/uL (156-360); RBC DIS.WIDTH-CV 16.1 % (11.8-14.6); RBC DIS.WIDTH-SD 56.6 % (39-53); RED BLOOD COUNT 3.18 M/uL (4.00-5.50); WHITE BLOOD COUNT 15.7 K/uL (4.1-10.2)
[2017-07-17 00:45] LABS: ALBUMIN 2.6 g/dL (3.2-4.8); CHLORIDE 114 mEq/L (99-109); POTASSIUM 4.3 mEq/L (3.7-5.4); SODIUM 142 mEq/L (136-147)
[2017-07-17 00:46] LABS: MAGNESIUM 1.4 mg/dL (1.3-2.7)
[2017-07-17 00:48] LABS: TOTAL PROTEIN 4.2 g/dL (6.4-8.3)
[2017-07-17 00:50] LABS: TOTAL BILIRUBIN 1.3 mg/dL (0.0-1.0)
[2017-07-17 00:51] LABS: ALKALINE PHOSPHATASE 111 IU/L (3-129); CREATININE 0.6 mg/dL (0.6-1.3); GFR ESTIMATE (CALCULATED) > 59 mL/min/ (58.99-99999)
[2017-07-17 00:53] LABS: AST (GOT) 43 IU/L (2-34); UREA NITROGEN (BUN) 29 mg/dL (9-23)
[2017-07-17 00:54] LABS: ALT (GPT) 43 IU/L (3-49)
[2017-07-17 00:57] LABS: GLUCOSE 99 mg/dL (70-99)
[2017-07-17 01:55] LABS: BASE EXCESS -6.1 mEq/L (-3 to +3); CARBOXY HGB 1.3 % (0-5); METHEMOGLOBIN 1.5 % (0-1.5); pH 7.45 (7.35-7.45)
[2017-07-17 01:56] LABS: BICARBONATE 16.7 mEq/L (22-26); COMMENTS - BLOOD GASES C+; DEVICE VENT; FI02 100 %; MECHANICAL RATE 16 resp/min; MODE AC; PCO2 24 mm Hg (35-45); PEEP 5 CM/H20; PO2 383 mm Hg (80-100); SITE LR; TIDAL VOLUME 500 ML; TOTAL RESP RATE 32 resp/min
[2017-07-17 07:26] LABS: CHLORIDE 112 MEQ/L (99-109); CREATININE 0.5 MG/DL (0.6-1.3); GFR ESTIMATE (CALCULATED) > 59 mL/min/ (58.99-99999); MAGNESIUM 2.2 mg/dl (1.3-2.7); PHOSPHORUS 3.2 mg/dL (2.5-4.9); POTASSIUM 4.1 MEQ/L (3.7-5.4); SODIUM 141 MEQ/L (136-147); UREA NITROGEN (BUN) 30 mg/dL (9-23)
[2017-07-17 07:55] LABS: GLUCOSE 200 mg/dL (70-99)
[2017-07-17 19:33] LABS: HEMATOCRIT 24.6 % (38.0-50.0); MCH 30.7 PG (29.0-34.0); MCHC 31.7 G/DL (30.0-36.0); MCV 96.9 FL (86-99); NRBC (%) 0.3 /100 WBC (0-0); RBC DIS.WIDTH-CV 15.9 % (11.8-14.6); RBC DIS.WIDTH-SD 55.3 % (39-53); WHITE BLOOD COUNT 15.3 K/uL (4.1-10.2)
[2017-07-17 19:37] LABS: HEMOGLOBIN 7.8 G/DL (12.5-16.6); RED BLOOD COUNT 2.54 M/uL (4.00-5.50)
[2017-07-17 19:56] LABS: ABS NEUTROPHIL COUNT 14.1; ANISOCYTOSIS 1+; BAND NEUTROPHILS 2.6 % (0-8.0); BASOPH.STIPPLING 1+; EOSINOPHIL ABS CT 0; LYMPHOCYTES 3.5 % (15.0-45.0); METAMYELOCYTES 1.8 %; MONOCYTES 1.8 % (0-9.0); MYELOCYTES 0.9 %; NUCLEATED RBC'S 0.9; PLAT.SUFFICIENCY ADEQUATE; PLATELET COUNT 192 K/uL (156-360); POIKILOCYTOSIS 1+; POLYCHROMASIA 1+; SEG.NEUTROPHILS 89.4 % (46.0-76.0)
[2017-07-18] VITALS (24 sets, daily range): BP systolic 81–131; BP diastolic 50–97
[2017-07-18 06:35] LABS: CHLORIDE 116 MEQ/L (99-109); CREATININE 0.5 MG/DL (0.6-1.3); GFR ESTIMATE (CALCULATED) > 59 mL/min/ (58.99-99999); GLUCOSE 158 mg/dL (70-99); PHOSPHORUS 2.4 mg/dL (2.5-4.9); POTASSIUM 3.6 MEQ/L (3.7-5.4); SODIUM 145 MEQ/L (136-147); UREA NITROGEN (BUN) 32 mg/dL (9-23)
[2017-07-18 09:52] LABS: HEMATOCRIT 23.9 % (38.0-50.0); HEMOGLOBIN 7.6 G/DL (12.5-16.6); MCHC 31.8 G/DL (30.0-36.0); MCV 97.6 FL (86-99); NRBC (%) 0.3 /100 WBC (0-0); PLATELET COUNT 148 K/uL (156-360); RBC DIS.WIDTH-CV 16.1 % (11.8-14.6); RBC DIS.WIDTH-SD 57.2 % (39-53); RED BLOOD COUNT 2.45 M/uL (4.00-5.50); WHITE BLOOD COUNT 11.5 K/uL (4.1-10.2)
[2017-07-18 10:07] LABS: HIGH-SENS C-REACTIVE PROTEIN > 8.00 MG/DL (0.02-0.20)
[2017-07-18 10:42] LABS: ABS NEUTROPHIL COUNT 10.7; ANISOCYTOSIS 1+; EOSINOPHIL ABS CT 0; LYMPHOCYTES 1.7 % (15.0-45.0); METAMYELOCYTES 3.5 %; MONOCYTES 1.7 % (0-9.0); PLAT.SUFFICIENCY DECREASED; POLYCHROMASIA 1+; SEG.NEUTROPHILS 93.1 % (46.0-76.0); SMUDGE CELLS 2.6
[2017-07-19] VITALS (28 sets, daily range): BP systolic 90–158; BP diastolic 65–102
[2017-07-19 05:47] LABS: BASOPHIL (%) 0.1 % (0-1); EOSINOPHIL (%) 0 % (0-5); HEMATOCRIT 21.6 % (38.0-50.0); IMMATURE GRANULOCYTE (%) 4.9 % (0.0-0.7); LYMPHOCYTE COUNT 0.2 K/uL (1.0-2.8); MCH 30.4 PG (29.0-34.0); MCHC 31.5 G/DL (30.0-36.0); MCV 96.4 FL (86-99); MONOCYTE (%) 5.4 % (3-12); MONOCYTE COUNT 0.6 K/uL (0-0.8); NEUTROPHIL (%) 87.6 % (45-76); NEUTROPHIL COUNT 10.3 K/uL (1.8-6.4); NRBC (%) 0.4 /100 WBC (0-0); PLATELET COUNT 181 K/uL (156-360); RBC DIS.WIDTH-CV 15.9 % (11.8-14.6); RBC DIS.WIDTH-SD 56.6 % (39-53); RED BLOOD COUNT 2.24 M/uL (4.00-5.50); WHITE BLOOD COUNT 11.7 K/uL (4.1-10.2)
[2017-07-19 05:48] LABS: HEMOGLOBIN 6.8 G/DL (12.5-16.6)
[2017-07-19 06:10] LABS: ALBUMIN 2.5 G/DL (3.2-4.8); ALKALINE PHOSPHATASE 58 IU/L (3-129); ALT (GPT) 20 IU/L (3-49); AST (GOT) 17 IU/L (2-34); CHLORIDE 114 MEQ/L (99-109); CREATININE 0.5 MG/DL (0.6-1.3); DIRECT BILIRUBIN 0.3 mg/dL (0.0-0.3); GFR ESTIMATE (CALCULATED) > 59 mL/min/ (58.99-99999); GLUCOSE 213 mg/dL (70-99); MAGNESIUM 1.8 mg/dl (1.3-2.7); PHOSPHORUS 2.7 mg/dL (2.5-4.9); POTASSIUM 3.6 MEQ/L (3.7-5.4); PREALBUMIN 11.8 mg/dL (10-40); SODIUM 146 MEQ/L (136-147); TOTAL BILIRUBIN 0.8 MG/DL (0.0-1.0); TOTAL PROTEIN 4.4 G/DL (6.4-8.3); TRIGLYCERIDES 82 MG/DL (Normal: <150); UREA NITROGEN (BUN) 35 mg/dL (9-23)
[2017-07-19 06:12] LABS: HIGH-SENS C-REACTIVE PROTEIN > 8.00 MG/DL (0.02-0.20)
[2017-07-19 10:12] LABS: BASE EXCESS -0.8 mEq/L (-3 to +3); BICARBONATE 22.1 mEq/L (22-26); CARBOXY HGB 1.8 % (0-5); COMMENTS - BLOOD GASES +C; METHEMOGLOBIN 1.5 % (0-1.5); PCO2 29 mm Hg (35-45); PO2 124 mm Hg (80-100); SITE LR +A; pH 7.49 (7.35-7.45)
[2017-07-19 10:13] LABS: CONTINUOUS POS AIRWAY PRESSURE 5 cm H2O; DEVICE PB840; FI02 30 %; MODE TUBE COMP; TOTAL RESP RATE 21 resp/min
[2017-07-19 10:26] LABS: BASOPHIL (%) 0.1 % (0-1); EOSINOPHIL (%) 0 % (0-5); HEMOGLOBIN 7.9 G/DL (12.5-16.6); IMMATURE GRANULOCYTE (%) 3.7 % (0.0-0.7); LYMPHOCYTE (%) 2.1 % (15-42); LYMPHOCYTE COUNT 0.3 K/uL (1.0-2.8); MCH 29.6 PG (29.0-34.0); MCHC 31.6 G/DL (30.0-36.0); MCV 93.6 FL (86-99); MONOCYTE (%) 5.6 % (3-12); MONOCYTE COUNT 0.7 K/uL (0-0.8); NEUTROPHIL (%) 88.5 % (45-76); NEUTROPHIL COUNT 11.3 K/uL (1.8-6.4); NRBC (%) 0.3 /100 WBC (0-0); PLATELET COUNT 183 K/uL (156-360); RBC DIS.WIDTH-CV 16.7 % (11.8-14.6); RBC DIS.WIDTH-SD 56.4 % (39-53); RED BLOOD COUNT 2.67 M/uL (4.00-5.50); WHITE BLOOD COUNT 12.8 K/uL (4.1-10.2)
[2017-07-20] VITALS (17 sets, daily range): BP systolic 110–137; BP diastolic 72–98
[2017-07-20 05:55] LABS: HEMATOCRIT 24.9 % (38.0-50.0); HEMOGLOBIN 7.8 G/DL (12.5-16.6); MCH 30.2 PG (29.0-34.0); MCHC 31.3 G/DL (30.0-36.0); MCV 96.5 FL (86-99); NRBC (%) 1.3 /100 WBC (0-0); PLATELET COUNT 191 K/uL (156-360); RBC DIS.WIDTH-SD 59.5 % (39-53); RED BLOOD COUNT 2.58 M/uL (4.00-5.50); WHITE BLOOD COUNT 11.7 K/uL (4.1-10.2)
[2017-07-20 05:58] LABS: BASE EXCESS 1.1 mEq/L (-3 to +3); BICARBONATE 23.7 mEq/L (22-26); CARBOXY HGB 1.9 % (0-5); METHEMOGLOBIN 1.4 % (0-1.5); PCO2 29 mm Hg (35-45); PO2 95 mm Hg (80-100); pH 7.52 (7.35-7.45)
[2017-07-20 05:59] LABS: COMMENTS - BLOOD GASES C+; DEVICE VENT; FI02 30 %; MODE SPONT; PEEP 5 CM/H20; PRES. SUPPORT 8 CM/H2O; SITE LR; TOTAL RESP RATE 20 resp/min
[2017-07-20 06:20] LABS: ALBUMIN 2.5 G/DL (3.2-4.8); ALKALINE PHOSPHATASE 76 IU/L (3-129); ALT (GPT) 23 IU/L (3-49); CHLORIDE 112 MEQ/L (99-109); CREATININE 0.4 MG/DL (0.6-1.3); GFR ESTIMATE (CALCULATED) > 59 mL/min/ (58.99-99999); GLUCOSE 192 mg/dL (70-99); MAGNESIUM 1.9 mg/dl (1.3-2.7); POTASSIUM 3.6 MEQ/L (3.7-5.4); SODIUM 147 MEQ/L (136-147); TOTAL BILIRUBIN 0.9 MG/DL (0.0-1.0); TOTAL PROTEIN 4.2 G/DL (6.4-8.3); UREA NITROGEN (BUN) 36 mg/dL (9-23)
[2017-07-20 06:22] LABS: AST (GOT) 25 IU/L (2-34)
[2017-07-20 06:24] LABS: ABS NEUTROPHIL COUNT 10.7; ANISOCYTOSIS 2+; BAND NEUTROPHILS 5.2 % (0-8.0); EOSINOPHIL ABS CT 0; LYMPHOCYTES 0.9 % (15.0-45.0); MACROCYTES 1+; MICROCYTOSIS 2+; MONOCYTES 6.1 % (0-9.0); MYELOCYTES 1.7 %; PLAT.SUFFICIENCY DECREASED; POLYCHROMASIA 1+; SEG.NEUTROPHILS 86.1 % (46.0-76.0)
[2017-07-20 11:43] LABS: 24 HR VOLUME 1775 MLS; URINE UREA NITROGEN 22880 MG/24 HR
[2017-07-21] VITALS (9 sets, daily range): BP systolic 116–144; BP diastolic 79–99
[2017-07-21 05:22] LABS: BASE EXCESS 4.1 mEq/L (-3 to +3); BICARBONATE 25.7 mEq/L (22-26); CARBOXY HGB 2.2 % (0-5); DEVICE RA; METHEMOGLOBIN 1.5 % (0-1.5); PCO2 28 mm Hg (35-45); PO2 70 mm Hg (80-100); SITE LR; TOTAL RESP RATE 22 resp/min; pH 7.57 (7.35-7.45)
[2017-07-21 05:23] LABS: COMMENTS - BLOOD GASES C+
[2017-07-21 06:00] LABS: HEMATOCRIT 28.6 % (38.0-50.0); HEMOGLOBIN 9.1 G/DL (12.5-16.6); MCH 30.3 PG (29.0-34.0); MCHC 31.8 G/DL (30.0-36.0); MCV 95.3 FL (86-99); NRBC (%) 2.5 /100 WBC (0-0); PLATELET COUNT 218 K/uL (156-360); RBC DIS.WIDTH-CV 16.7 % (11.8-14.6); RBC DIS.WIDTH-SD 57.9 % (39-53); WHITE BLOOD COUNT 13.4 K/uL (4.1-10.2)
[2017-07-21 06:25] LABS: ALBUMIN 2.6 G/DL (3.2-4.8); ALT (GPT) 35 IU/L (3-49); CHLORIDE 109 MEQ/L (99-109); CREATININE 0.4 MG/DL (0.6-1.3); GFR ESTIMATE (CALCULATED) > 59 mL/min/ (58.99-99999); GLUCOSE 186 mg/dL (70-99); MAGNESIUM 2.1 mg/dl (1.3-2.7); PHOSPHORUS 3.1 mg/dL (2.5-4.9); POTASSIUM 3.4 MEQ/L (3.7-5.4); SODIUM 144 MEQ/L (136-147); TOTAL PROTEIN 4.4 G/DL (6.4-8.3); UREA NITROGEN (BUN) 34 mg/dL (9-23)
[2017-07-21 06:26] LABS: ALKALINE PHOSPHATASE 113 IU/L (3-129); AST (GOT) 41 IU/L (2-34); TOTAL BILIRUBIN 1.3 MG/DL (0.0-1.0)
[2017-07-21 07:05] LABS: ANISOCYTOSIS 1+; EOSINOPHIL ABS CT 0; LYMPHOCYTES 0.9 % (15.0-45.0); METAMYELOCYTES 0.9 %; MICROCYTOSIS 1+; MYELOCYTES 0.9 %; NUCLEATED RBC'S 3.5; PLAT.SUFFICIENCY ADEQUATE; POLYCHROMASIA 1+; SEG.NEUTROPHILS 90.3 % (46.0-76.0)
[2017-07-21 13:47] LABS: BASE EXCESS 2.5 mEq/L (-3 to +3); BICARBONATE 24.2 mEq/L (22-26); COMMENTS - BLOOD GASES A+C+; DEVICE NC; METHEMOGLOBIN 1.6 % (0-1.5); O2 FLOW 2.5 L/MIN; PCO2 27 mm Hg (35-45); PO2 73 mm Hg (80-100); SITE RR
[2017-07-21 13:48] LABS: pH 7.56 (7.35-7.45)
[2017-07-22] VITALS (7 sets, daily range): BP systolic 106–149; BP diastolic 64–98
[2017-07-22 05:04] LABS: HEMATOCRIT 30.9 % (38.0-50.0); HEMOGLOBIN 9.9 G/DL (12.5-16.6); MCH 30.6 PG (29.0-34.0); MCV 95.4 FL (86-99); NRBC (%) 2.7 /100 WBC (0-0); PLATELET COUNT 194 K/uL (156-360); RBC DIS.WIDTH-CV 16.8 % (11.8-14.6); RED BLOOD COUNT 3.24 M/uL (4.00-5.50); WHITE BLOOD COUNT 15.3 K/uL (4.1-10.2)
[2017-07-22 05:21] LABS: CHLORIDE 109 mEq/L (99-109); SODIUM 142 mEq/L (136-147)
[2017-07-22 05:22] LABS: ALBUMIN 2.8 g/dL (3.2-4.8)
[2017-07-22 05:24] LABS: GLUCOSE 133 mg/dL (70-99); MAGNESIUM 1.7 mg/dL (1.3-2.7); TOTAL PROTEIN 4.2 g/dL (6.4-8.3)
[2017-07-22 05:27] LABS: CREATININE 0.5 mg/dL (0.6-1.3); GFR ESTIMATE (CALCULATED) > 59 mL/min/ (58.99-99999); PHOSPHORUS 2.7 mg/dL (2.5-4.9); TOTAL BILIRUBIN 1.8 mg/dL (0.0-1.0)
[2017-07-22 05:29] LABS: UREA NITROGEN (BUN) 31 mg/dL (9-23)
[2017-07-22 05:30] LABS: ALT (GPT) 73 IU/L (3-49)
[2017-07-22 05:33] LABS: ALKALINE PHOSPHATASE 153 IU/L (3-129); AST (GOT) 91 IU/L (2-34)
[2017-07-22 06:14] LABS: ABS NEUTROPHIL COUNT 13.4; ANISOCYTOSIS 2+; BAND NEUTROPHILS 10.5 % (0-8.0); EOSINOPHIL ABS CT 0; LYMPHOCYTES 5.3 % (15.0-45.0); MACROCYTES 1+; METAMYELOCYTES 5.3 %; MICROCYTOSIS 1+; MYELOCYTES 1.7 %; POLYCHROMASIA 1+; SEG.NEUTROPHILS 77.2 % (46.0-76.0)
[2017-07-23] VITALS (16 sets, daily range): BP systolic 64–140; BP diastolic 46–90
[2017-07-23 05:27] LABS: HEMATOCRIT 30.7 % (38.0-50.0); HEMOGLOBIN 9.5 G/DL (12.5-16.6); MCH 29.9 PG (29.0-34.0); MCHC 30.9 G/DL (30.0-36.0); MCV 96.5 FL (86-99); NRBC (%) 1.4 /100 WBC (0-0); PLATELET COUNT 165 K/uL (156-360); RBC DIS.WIDTH-CV 17.1 % (11.8-14.6); RBC DIS.WIDTH-SD 60.3 % (39-53); RED BLOOD COUNT 3.18 M/uL (4.00-5.50); WHITE BLOOD COUNT 13.3 K/uL (4.1-10.2)
[2017-07-23 06:06] LABS: ALBUMIN 2.4 G/DL (3.2-4.8); ALKALINE PHOSPHATASE 119 IU/L (3-129); ALT (GPT) 58 IU/L (3-49); AST (GOT) 45 IU/L (2-34); CHLORIDE 107 MEQ/L (99-109); CREATININE 0.4 MG/DL (0.6-1.3); GFR ESTIMATE (CALCULATED) > 59 mL/min/ (58.99-99999); GLUCOSE 183 mg/dL (70-99); PHOSPHORUS 3.2 mg/dL (2.5-4.9); POTASSIUM 4.2 MEQ/L (3.7-5.4); SODIUM 140 MEQ/L (136-147); TOTAL BILIRUBIN 1.2 MG/DL (0.0-1.0); TOTAL PROTEIN 4.1 G/DL (6.4-8.3); UREA NITROGEN (BUN) 28 mg/dL (9-23)
[2017-07-23 06:57] LABS: ABS NEUTROPHIL COUNT 12.2; ANISOCYTOSIS 2+; EOSINOPHIL ABS CT 0; MACROCYTES 1+; POLYCHROMASIA 1+
[2017-07-23 17:43] LABS: HEMATOCRIT 35.4 % (38.0-50.0); HEMOGLOBIN 10.8 G/DL (12.5-16.6); MCH 29.7 PG (29.0-34.0); MCHC 30.5 G/DL (30.0-36.0); MCV 97.3 FL (86-99); NRBC (%) 1.3 /100 WBC (0-0); PLATELET COUNT 191 K/uL (156-360); RBC DIS.WIDTH-CV 17.1 % (11.8-14.6); RBC DIS.WIDTH-SD 58.8 % (39-53); RED BLOOD COUNT 3.64 M/uL (4.00-5.50); WHITE BLOOD COUNT 16.9 K/uL (4.1-10.2)
[2017-07-23 18:07] LABS: CHLORIDE 104 MEQ/L (99-109); CREATININE 0.4 MG/DL (0.6-1.3); GFR ESTIMATE (CALCULATED) > 59 mL/min/ (58.99-99999); GLUCOSE 183 mg/dL (70-99); POTASSIUM 4.6 MEQ/L (3.7-5.4); SODIUM 138 MEQ/L (136-147); UREA NITROGEN (BUN) 28 mg/dL (9-23)
[2017-07-23 18:22] LABS: ABS NEUTROPHIL COUNT 14.5; ANISOCYTOSIS 1+; BAND NEUTROPHILS 8.4 % (0-8.0); EOSINOPHIL ABS CT 0.2; EOSINOPHILS 0.9 % (0-5.0); LYMPHOCYTES 2.5 % (15.0-45.0); MICROCYTOSIS 1+; MONOCYTES 6.7 % (0-9.0); MYELOCYTES 4.2 %; NUCLEATED RBC'S 2.5; PLAT.SUFFICIENCY ADEQUATE; POLYCHROMASIA 1+; SEG.NEUTROPHILS 77.3 % (46.0-76.0); SPHEROCYTES 2+
[2017-07-23 19:55] LABS: HEMATOCRIT 35.4 % (38.0-50.0); HEMOGLOBIN 10.9 G/DL (12.5-16.6); MCH 30.4 PG (29.0-34.0); MCHC 30.8 G/DL (30.0-36.0); MCV 98.6 FL (86-99); NRBC (%) 1.8 /100 WBC (0-0); PLATELET COUNT 183 K/uL (156-360); RBC DIS.WIDTH-CV 17.2 % (11.8-14.6); RBC DIS.WIDTH-SD 61.7 % (39-53); RED BLOOD COUNT 3.59 M/uL (4.00-5.50); WHITE BLOOD COUNT 14.2 K/uL (4.1-10.2)
[2017-07-23 20:00] LABS: INTER. NORMALIZED RATIO 1.4
[2017-07-23 20:02] LABS: PTT 27.2 SEC (25-37)
[2017-07-23 23:34] LABS: BASE EXCESS -1.9 mEq/L (-3 to +3); BICARBONATE 19.9 mEq/L (22-26); CARBOXY HGB 1.7 % (0-5); COMMENTS - BLOOD GASES C+NA; DEVICE VENT; METHEMOGLOBIN 1.8 % (0-1.5); PCO2 25 mm Hg (35-45); PO2 255 mm Hg (80-100); SITE LR; pH 7.51 (7.35-7.45)
[2017-07-23 23:35] LABS: FI02 80 %; MECHANICAL RATE 14 resp/min; MODE AC; PEEP 5 CM/H20; TIDAL VOLUME 550 ML; TOTAL RESP RATE 35 resp/min
[2017-07-24] VITALS (12 sets, daily range): BP systolic 67–160; BP diastolic 44–91
[2017-07-24 06:34] LABS: ALBUMIN 2.3 G/DL (3.2-4.8); ALKALINE PHOSPHATASE 135 IU/L (3-129); ALT (GPT) 46 IU/L (3-49); AST (GOT) 37 IU/L (2-34); CHLORIDE 106 MEQ/L (99-109); CREATININE 0.5 MG/DL (0.6-1.3); GFR ESTIMATE (CALCULATED) > 59 mL/min/ (58.99-99999); GLUCOSE 192 mg/dL (70-99); PHOSPHORUS 3.6 mg/dL (2.5-4.9); POTASSIUM 4.7 MEQ/L (3.7-5.4); SODIUM 135 MEQ/L (136-147); TOTAL BILIRUBIN 1.2 MG/DL (0.0-1.0); TOTAL PROTEIN 4.1 G/DL (6.4-8.3); UREA NITROGEN (BUN) 35 mg/dL (9-23)
[2017-07-24 06:59] LABS: DIRECT BILIRUBIN 0.3 mg/dL (0.0-0.3)
[2017-07-24 07:17] LABS: BASOPHIL (%) 0.2 % (0-1); EOSINOPHIL (%) 0.2 % (0-5); HEMATOCRIT 31.1 % (38.0-50.0); LYMPHOCYTE (%) 2.5 % (15-42); LYMPHOCYTE COUNT 0.5 K/uL (1.0-2.8); MCH 30.9 PG (29.0-34.0); MCHC 32.2 G/DL (30.0-36.0); MONOCYTE COUNT 0.7 K/uL (0-0.8); NEUTROPHIL (%) 88.1 % (45-76); NEUTROPHIL COUNT 16.3 K/uL (1.8-6.4); NRBC (%) 0.9 /100 WBC (0-0); PLATELET COUNT 183 K/uL (156-360); RBC DIS.WIDTH-CV 17.3 % (11.8-14.6); RBC DIS.WIDTH-SD 59.8 % (39-53); RED BLOOD COUNT 3.24 M/uL (4.00-5.50); WHITE BLOOD COUNT 18.5 K/uL (4.1-10.2)
[2017-07-25 04:47] LABS: BASOPHIL (%) 0.1 % (0-1); EOSINOPHIL (%) 0.7 % (0-5); EOSINOPHIL COUNT 0.1 K/uL (0-0.3); HEMATOCRIT 27.3 % (38.0-50.0); HEMOGLOBIN 8.8 G/DL (12.5-16.6); IMMATURE GRANULOCYTE (%) 4.4 % (0.0-0.7); LYMPHOCYTE (%) 3.6 % (15-42); LYMPHOCYTE COUNT 0.5 K/uL (1.0-2.8); MCH 30.6 PG (29.0-34.0); MCHC 32.2 G/DL (30.0-36.0); MCV 94.8 FL (86-99); MONOCYTE (%) 4.6 % (3-12); MONOCYTE COUNT 0.6 K/uL (0-0.8); NEUTROPHIL (%) 86.6 % (45-76); NEUTROPHIL COUNT 11.9 K/uL (1.8-6.4); NRBC (%) 0.2 /100 WBC (0-0); PLATELET COUNT 157 K/uL (156-360); RBC DIS.WIDTH-CV 17.2 % (11.8-14.6); RBC DIS.WIDTH-SD 59.4 % (39-53); RED BLOOD COUNT 2.88 M/uL (4.00-5.50); WHITE BLOOD COUNT 13.7 K/uL (4.1-10.2)
[2017-07-25 04:58] LABS: ALBUMIN 2.5 g/dL (3.2-4.8); CHLORIDE 107 mEq/L (99-109); SODIUM 135 mEq/L (136-147)
[2017-07-25 05:01] LABS: GLUCOSE 168 mg/dL (70-99); TOTAL PROTEIN 4.3 g/dL (6.4-8.3)
[2017-07-25 05:03] LABS: MAGNESIUM 2.5 mg/dL (1.3-2.7); TOTAL BILIRUBIN 0.8 mg/dL (0.0-1.0)
[2017-07-25 05:04] LABS: ALKALINE PHOSPHATASE 118 IU/L (3-129); CREATININE 0.7 mg/dL (0.6-1.3); GFR ESTIMATE (CALCULATED) > 59 mL/min/ (58.99-99999); PHOSPHORUS 3.4 mg/dL (2.5-4.9)
[2017-07-25 05:05] LABS: UREA NITROGEN (BUN) 49 mg/dL (9-23)
[2017-07-25 05:07] LABS: ALT (GPT) 39 IU/L (3-49)
[2017-07-25 05:08] LABS: AST (GOT) 50 IU/L (2-34)
[2017-07-25 08:03] VITALS: BP 105/68
[2017-07-25 12:02] VITALS: BP 98/73
[2017-07-25 16:02] VITALS: BP 124/49
[2017-07-25 21:47] LABS: HEMATOCRIT 25.2 % (38.0-50.0); HEMOGLOBIN 7.9 G/DL (12.5-16.6); MCV 94.7 FL (86-99)
[2017-07-25 22:02] LABS: INTER. NORMALIZED RATIO 1.3
[2017-07-25 22:04] LABS: PTT 38.9 SEC (25-37)
[2017-07-26] VITALS (8 sets, daily range): BP systolic 93–122; BP diastolic 52–86
[2017-07-26 05:16] LABS: BASOPHIL (%) 0.1 % (0-1); EOSINOPHIL COUNT 0.1 K/uL (0-0.3); HEMATOCRIT 23.2 % (38.0-50.0); HEMOGLOBIN 7.1 G/DL (12.5-16.6); IMMATURE GRANULOCYTE (%) 2.9 % (0.0-0.7); LYMPHOCYTE (%) 2.6 % (15-42); LYMPHOCYTE COUNT 0.3 K/uL (1.0-2.8); MCH 29.3 PG (29.0-34.0); MCHC 30.6 G/DL (30.0-36.0); MCV 95.9 FL (86-99); MONOCYTE (%) 3.6 % (3-12); MONOCYTE COUNT 0.4 K/uL (0-0.8); NEUTROPHIL (%) 89.8 % (45-76); NEUTROPHIL COUNT 9.3 K/uL (1.8-6.4); NRBC (%) 0.2 /100 WBC (0-0); PLATELET COUNT 143 K/uL (156-360); RBC DIS.WIDTH-CV 17.1 % (11.8-14.6); RBC DIS.WIDTH-SD 59.7 % (39-53); RED BLOOD COUNT 2.42 M/uL (4.00-5.50); WHITE BLOOD COUNT 10.4 K/uL (4.1-10.2)
[2017-07-26 06:35] LABS: ALBUMIN 3.2 G/DL (3.2-4.8); ALT (GPT) 24 IU/L (3-49); AST (GOT) 26 IU/L (2-34); CHLORIDE 106 MEQ/L (99-109); CREATININE 0.6 MG/DL (0.6-1.3); DIRECT BILIRUBIN 0.7 mg/dL (0.0-0.3); GFR ESTIMATE (CALCULATED) > 59 mL/min/ (58.99-99999); GLUCOSE 176 mg/dL (70-99); MAGNESIUM 2.1 mg/dl (1.3-2.7); PREALBUMIN 9.6 mg/dL (10-40); SODIUM 137 MEQ/L (136-147); TOTAL BILIRUBIN 1.2 MG/DL (0.0-1.0); TOTAL PROTEIN 4.4 G/DL (6.4-8.3); TRIGLYCERIDES 124 MG/DL (Normal: <150); UREA NITROGEN (BUN) 42 mg/dL (9-23)
[2017-07-26 06:46] LABS: ALKALINE PHOSPHATASE 83 IU/L (3-129); POTASSIUM 3.7 MEQ/L (3.7-5.4)
[2017-07-26 20:07] LABS: HEMOGLOBIN 8.2 G/DL (12.5-16.6); MCV 93.9 FL (86-99)
[2017-07-27] VITALS (11 sets, daily range): BP systolic 88–120; BP diastolic 57–82
[2017-07-27 05:20] LABS: HEMATOCRIT 25.3 % (38.0-50.0); HEMOGLOBIN 7.9 G/DL (12.5-16.6); MCH 29.3 PG (29.0-34.0); MCHC 31.2 G/DL (30.0-36.0); MCV 93.7 FL (86-99); NRBC (%) 0.3 /100 WBC (0-0); PLATELET COUNT 139 K/uL (156-360); RBC DIS.WIDTH-CV 18.3 % (11.8-14.6); RBC DIS.WIDTH-SD 61.7 % (39-53); WHITE BLOOD COUNT 9.4 K/uL (4.1-10.2)
[2017-07-27 05:55] LABS: ALKALINE PHOSPHATASE 74 IU/L (3-129); ALT (GPT) 28 IU/L (3-49); CHLORIDE 109 MEQ/L (99-109); CREATININE 0.4 MG/DL (0.6-1.3); GFR ESTIMATE (CALCULATED) > 59 mL/min/ (58.99-99999); GLUCOSE 171 mg/dL (70-99); MAGNESIUM 1.9 mg/dl (1.3-2.7); PHOSPHORUS 2.9 mg/dL (2.5-4.9); POTASSIUM 4.3 MEQ/L (3.7-5.4); SODIUM 139 MEQ/L (136-147); TOTAL BILIRUBIN 1.2 MG/DL (0.0-1.0); TOTAL PROTEIN 4.4 G/DL (6.4-8.3); UREA NITROGEN (BUN) 35 mg/dL (9-23)
[2017-07-27 05:56] LABS: AST (GOT) 43 IU/L (2-34)
[2017-07-27 06:16] LABS: ABS NEUTROPHIL COUNT 8.6; ANISOCYTOSIS 1+; EOSINOPHIL ABS CT 0; GIANT PLATELETS 2+; MICROCYTOSIS 1+; PLATELET CLUMPS PRESENT - PLATELET COUNT APPEARS ADQ.; POLYCHROMASIA 1+
[2017-07-28 00:01] VITALS: BP 93/55
[2017-07-28 04:00] VITALS: BP 122/74
[2017-07-28 05:32] LABS: HEMATOCRIT 25.3 % (38.0-50.0); HEMOGLOBIN 7.9 G/DL (12.5-16.6); MCH 29.7 PG (29.0-34.0); MCHC 31.2 G/DL (30.0-36.0); MCV 95.1 FL (86-99); NRBC (%) 0.9 /100 WBC (0-0); PLATELET COUNT 159 K/uL (156-360); RBC DIS.WIDTH-CV 18.1 % (11.8-14.6); RBC DIS.WIDTH-SD 62.4 % (39-53); RED BLOOD COUNT 2.66 M/uL (4.00-5.50); WHITE BLOOD COUNT 9.4 K/uL (4.1-10.2)
[2017-07-28 06:00] LABS: ALBUMIN 2.6 G/DL (3.2-4.8); ALT (GPT) 52 IU/L (3-49); CHLORIDE 108 MEQ/L (99-109); CREATININE 0.4 MG/DL (0.6-1.3); GFR ESTIMATE (CALCULATED) > 59 mL/min/ (58.99-99999); GLUCOSE 159 mg/dL (70-99); MAGNESIUM 1.8 mg/dl (1.3-2.7); PHOSPHORUS 3.5 mg/dL (2.5-4.9); POTASSIUM 4.8 MEQ/L (3.7-5.4); SODIUM 140 MEQ/L (136-147); TOTAL BILIRUBIN 1.3 MG/DL (0.0-1.0); TOTAL PROTEIN 3.9 G/DL (6.4-8.3); UREA NITROGEN (BUN) 34 mg/dL (9-23)
[2017-07-28 06:06] LABS: ALKALINE PHOSPHATASE 124 IU/L (3-129); AST (GOT) 79 IU/L (2-34)
[2017-07-28 06:24] LABS: ABS NEUTROPHIL COUNT 8.3; ANISOCYTOSIS 2+; BAND NEUTROPHILS 0.9 % (0-8.0); BASOPHILS 0.9 %; EOSINOPHIL ABS CT 0.1; EOSINOPHILS 0.8 % (0-5.0); LYMPHOCYTES 7.8 % (15.0-45.0); MACROCYTES 1+; METAMYELOCYTES 0.9 %; MICROCYTOSIS 1+; MONOCYTES 0.9 % (0-9.0); PLAT.SUFFICIENCY ADEQUATE; POLYCHROMASIA 1+; SEG.NEUTROPHILS 87.8 % (46.0-76.0)
[2017-07-28 08:01] VITALS: BP 97/67
[2017-07-28 16:01] VITALS: BP 91/72
[2017-07-28 20:02] VITALS: BP 137/69
[2017-07-29 00:01] VITALS: BP 123/77
[2017-07-29 04:01] VITALS: BP 90/66
[2017-07-29 04:58] LABS: CHLORIDE 110 mEq/L (99-109)
[2017-07-29 04:59] LABS: POTASSIUM 4.1 mEq/L (3.7-5.4); SODIUM 141 mEq/L (136-147)
[2017-07-29 05:01] LABS: GLUCOSE 154 mg/dL (70-99)
[2017-07-29 05:04] LABS: CREATININE 0.5 mg/dL (0.6-1.3); GFR ESTIMATE (CALCULATED) > 59 mL/min/ (58.99-99999); PHOSPHORUS 3.5 mg/dL (2.5-4.9)
[2017-07-29 05:05] LABS: UREA NITROGEN (BUN) 35 mg/dL (9-23)
[2017-07-29 05:18] LABS: MAGNESIUM 1.5 mg/dL (1.3-2.7)
[2017-07-29 07:00] LABS: 24 HR VOLUME 1700 MLS; URINE UREA NITROGEN 20791 MG/24 HR
[2017-07-29 08:01] VITALS: BP 117/71
[2017-07-29 12:01] VITALS: BP 103/74
[2017-07-29 20:00] VITALS: BP 114/77
[2017-07-30] VITALS: BP 110/78
[2017-07-30 04:00] VITALS: BP 110/82
[2017-07-30 05:33] LABS: CHLORIDE 109 mEq/L (99-109); SODIUM 139 mEq/L (136-147)
[2017-07-30 05:35] LABS: GLUCOSE 131 mg/dL (70-99)
[2017-07-30 05:39] LABS: CREATININE 0.5 mg/dL (0.6-1.3); GFR ESTIMATE (CALCULATED) > 59 mL/min/ (58.99-99999); PHOSPHORUS 3.4 mg/dL (2.5-4.9)
[2017-07-30 05:40] LABS: UREA NITROGEN (BUN) 35 mg/dL (9-23)
[2017-07-30 08:01] VITALS: BP 104/74
[2017-07-30 20:32] VITALS: BP 89/73
[2017-07-31 00:01] VITALS: BP 126/77
[2017-07-31 06:17] LABS: CHLORIDE 109 MEQ/L (99-109); CREATININE 0.4 MG/DL (0.6-1.3); GFR ESTIMATE (CALCULATED) > 59 mL/min/ (58.99-99999); GLUCOSE 196 mg/dL (70-99); MAGNESIUM 1.9 mg/dl (1.3-2.7); PHOSPHORUS 3.6 mg/dL (2.5-4.9); POTASSIUM 4.1 MEQ/L (3.7-5.4); SODIUM 141 MEQ/L (136-147); UREA NITROGEN (BUN) 37 mg/dL (9-23)
[2017-07-31 08:01] VITALS: BP 94/65
[2017-07-31 11:16] LABS: HEMATOCRIT 25.8 % (38.0-50.0); MCH 29.9 PG (29.0-34.0); MCV 96.3 FL (86-99); NRBC (%) 1.2 /100 WBC (0-0); RBC DIS.WIDTH-CV 17.8 % (11.8-14.6); RBC DIS.WIDTH-SD 60.9 % (39-53); RED BLOOD COUNT 2.68 M/uL (4.00-5.50); WHITE BLOOD COUNT 8.3 K/uL (4.1-10.2)
[2017-07-31 11:19] LABS: PLATELET COUNT 246 K/uL (156-360)
[2017-07-31 11:43] LABS: ABS NEUTROPHIL COUNT 6.5; ANISOCYTOSIS 1+; BAND NEUTROPHILS 4.4 % (0-8.0); EOSINOPHIL ABS CT 0.2; EOSINOPHILS 2.6 % (0-5.0); HYPOCHROMASIA 1+; LYMPHOCYTES 5.2 % (15.0-45.0); MACROCYTES 1+; METAMYELOCYTES 1.7 %; MICROCYTOSIS 1+; MONOCYTES 5.2 % (0-9.0); NUCLEATED RBC'S 0.9; PLAT.SUFFICIENCY ADEQUATE; POLYCHROMASIA 1+; SEG.NEUTROPHILS 73.9 % (46.0-76.0)
[2017-07-31 12:01] VITALS: BP 101/75
[2017-07-31 13:43] LABS: TRIGLYCERIDES 148 MG/DL (Normal: <150)
[2017-07-31 16:01] VITALS: BP 110/74
[2017-07-31 20:00] VITALS: BP 128/74
[2017-08-01 04:59] LABS: CHLORIDE 106 MEQ/L (99-109); CREATININE 0.4 MG/DL (0.6-1.3); GFR ESTIMATE (CALCULATED) > 59 mL/min/ (58.99-99999); GLUCOSE 271 mg/dL (70-99); PHOSPHORUS 3.1 mg/dL (2.5-4.9); POTASSIUM 3.5 MEQ/L (3.7-5.4); SODIUM 139 MEQ/L (136-147); UREA NITROGEN (BUN) 43 mg/dL (9-23)
[2017-08-01 10:00] VITALS: BP 139/78
[2017-08-02 05:25] LABS: BASE EXCESS 1.8 mEq/L (-3 to +3); CARBOXY HGB 2.1 % (0-5); METHEMOGLOBIN 1.5 % (0-1.5); pH 7.46 (7.35-7.45)
[2017-08-02 05:26] LABS: BICARBONATE 25.6 mEq/L (22-26); DEVICE VENT; FI02 30 %; MECHANICAL RATE 20 resp/min; MODE ACVC; PCO2 36 mm Hg (35-45); PEEP 5 CM/H20; PO2 88 mm Hg (80-100); SITE ALINE; TIDAL VOLUME 450 ML; TOTAL RESP RATE 24 resp/min
[2017-08-02 05:29] LABS: HEMATOCRIT 26.1 % (38.0-50.0); HEMOGLOBIN 7.8 G/DL (12.5-16.6); MCH 28.8 PG (29.0-34.0); MCHC 29.9 G/DL (30.0-36.0); MCV 96.3 FL (86-99); NRBC (%) 1.4 /100 WBC (0-0); PLATELET COUNT 250 K/uL (156-360); RBC DIS.WIDTH-CV 17.5 % (11.8-14.6); RBC DIS.WIDTH-SD 60.8 % (39-53); RED BLOOD COUNT 2.71 M/uL (4.00-5.50); WHITE BLOOD COUNT 10.9 K/uL (4.1-10.2)
[2017-08-02 06:04] LABS: ALBUMIN 2.6 G/DL (3.2-4.8); ALT (GPT) 87 IU/L (3-49); AST (GOT) 48 IU/L (2-34); CHLORIDE 107 MEQ/L (99-109); CREATININE 0.4 MG/DL (0.6-1.3); DIRECT BILIRUBIN 0.2 mg/dL (0.0-0.3); GFR ESTIMATE (CALCULATED) > 59 mL/min/ (58.99-99999); GLUCOSE 224 mg/dL (70-99); MAGNESIUM 1.9 mg/dl (1.3-2.7); PHOSPHORUS 3.7 mg/dL (2.5-4.9); POTASSIUM 3.7 MEQ/L (3.7-5.4); PREALBUMIN 11.5 mg/dL (10-40); SODIUM 142 MEQ/L (136-147); TRIGLYCERIDES 173 MG/DL (Normal: <150); UREA NITROGEN (BUN) 45 mg/dL (9-23)
[2017-08-02 06:05] LABS: ALKALINE PHOSPHATASE 278 IU/L (3-129); TOTAL BILIRUBIN 0.6 MG/DL (0.0-1.0); TOTAL PROTEIN 4.5 G/DL (6.4-8.3)
[2017-08-02 06:30] LABS: ANISOCYTOSIS 2+; BAND NEUTROPHILS 4.4 % (0-8.0); EOSINOPHIL ABS CT 0; LYMPHOCYTES 4.4 % (15.0-45.0); MACROCYTES 1+; METAMYELOCYTES 1.8 %; MICROCYTOSIS 1+; MONOCYTES 1.7 % (0-9.0); NUCLEATED RBC'S 0.9; PLAT.SUFFICIENCY ADEQUATE; POLYCHROMASIA 2+; SEG.NEUTROPHILS 87.7 % (46.0-76.0)
[2017-08-02 20:00] VITALS: BP 120/87
[2017-08-03] VITALS (22 sets, daily range): BP systolic 91–160; BP diastolic 55–113
[2017-08-03 04:54] LABS: CHLORIDE 107 mEq/L (99-109); MAGNESIUM 1.9 mg/dL (1.3-2.7); POTASSIUM 3.4 mEq/L (3.7-5.4); SODIUM 144 mEq/L (136-147)
[2017-08-03 04:56] LABS: GLUCOSE 211 mg/dL (70-99)
[2017-08-03 04:59] LABS: PHOSPHORUS 4.3 mg/dL (2.5-4.9)
[2017-08-03 05:00] LABS: CREATININE 0.5 mg/dL (0.6-1.3); GFR ESTIMATE (CALCULATED) > 59 mL/min/ (58.99-99999); UREA NITROGEN (BUN) 44 mg/dL (9-23)
[2017-08-03 21:22] LABS: 24 HR VOLUME 4575 MLS; URINE UREA NITROGEN 20313 MG/24 HR
[2017-08-04] VITALS (23 sets, daily range): BP systolic 86–129; BP diastolic 59–102
[2017-08-04 05:12] LABS: HEMATOCRIT 30.4 % (38.0-50.0); HEMOGLOBIN 9.1 G/DL (12.5-16.6); MCH 30.2 PG (29.0-34.0); MCHC 29.9 G/DL (30.0-36.0); NRBC (%) 1.7 /100 WBC (0-0); RBC DIS.WIDTH-CV 18.5 % (11.8-14.6); RBC DIS.WIDTH-SD 66.4 % (39-53); RED BLOOD COUNT 3.01 M/uL (4.00-5.50); WHITE BLOOD COUNT 11.8 K/uL (4.1-10.2)
[2017-08-04 05:21] LABS: CHLORIDE 107 mEq/L (99-109); SODIUM 145 mEq/L (136-147)
[2017-08-04 05:23] LABS: GLUCOSE 255 mg/dL (70-99)
[2017-08-04 05:27] LABS: CREATININE 0.6 mg/dL (0.6-1.3); GFR ESTIMATE (CALCULATED) > 59 mL/min/ (58.99-99999); MAGNESIUM 2.2 mg/dL (1.3-2.7); UREA NITROGEN (BUN) 46 mg/dL (9-23)
[2017-08-04 07:38] LABS: ABS NEUTROPHIL COUNT 10.1; ANISOCYTOSIS 2+; EOSINOPHIL ABS CT 0; MACROCYTES 1+; PLAT.SUFFICIENCY DECREASED; PLATELET CLUMPS PRESENT - PLATELET COUNTS APPEARS DECREASED; PLATELET COUNT UNABLE TO REPORT K/uL (156-360)
[2017-08-05] VITALS (24 sets, daily range): BP systolic 93–138; BP diastolic 70–107
[2017-08-05 05:00] LABS: CHLORIDE 109 mEq/L (99-109); POTASSIUM 4.2 mEq/L (3.7-5.4); SODIUM 148 mEq/L (136-147)
[2017-08-05 05:01] LABS: MAGNESIUM 2.1 mg/dL (1.3-2.7)
[2017-08-05 05:02] LABS: GLUCOSE 157 mg/dL (70-99)
[2017-08-05 05:06] LABS: CREATININE 0.5 mg/dL (0.6-1.3); GFR ESTIMATE (CALCULATED) > 59 mL/min/ (58.99-99999)
[2017-08-05 05:07] LABS: UREA NITROGEN (BUN) 45 mg/dL (9-23)
[2017-08-06] VITALS (9 sets, daily range): BP systolic 108–144; BP diastolic 73–106
[2017-08-06 05:40] LABS: BASOPHIL (%) 0.5 % (0-1); BASOPHIL COUNT 0.1 K/uL (0-0.1); EOSINOPHIL (%) 0.9 % (0-5); EOSINOPHIL COUNT 0.1 K/uL (0-0.3); HEMATOCRIT 32.6 % (38.0-50.0); HEMOGLOBIN 9.6 G/DL (12.5-16.6); IMMATURE GRANULOCYTE (%) 4.2 % (0.0-0.7); LYMPHOCYTE (%) 4.6 % (15-42); LYMPHOCYTE COUNT 0.6 K/uL (1.0-2.8); MCH 28.7 PG (29.0-34.0); MCHC 29.4 G/DL (30.0-36.0); MCV 97.3 FL (86-99); MONOCYTE (%) 6.7 % (3-12); MONOCYTE COUNT 0.9 K/uL (0-0.8); NEUTROPHIL (%) 83.1 % (45-76); NEUTROPHIL COUNT 10.6 K/uL (1.8-6.4); PLATELET COUNT 315 K/uL (156-360); RBC DIS.WIDTH-CV 18.4 % (11.8-14.6); RBC DIS.WIDTH-SD 64.8 % (39-53); RED BLOOD COUNT 3.35 M/uL (4.00-5.50); WHITE BLOOD COUNT 12.7 K/uL (4.1-10.2)
[2017-08-06 06:06] LABS: CHLORIDE 110 MEQ/L (99-109); CREATININE 0.4 MG/DL (0.6-1.3); GFR ESTIMATE (CALCULATED) > 59 mL/min/ (58.99-99999); MAGNESIUM 1.7 mg/dl (1.3-2.7); PHOSPHORUS 3.2 mg/dL (2.5-4.9); POTASSIUM 3.4 MEQ/L (3.7-5.4); SODIUM 147 MEQ/L (136-147); UREA NITROGEN (BUN) 31 mg/dL (9-23)
[2017-08-06 06:15] LABS: GLUCOSE 73 mg/dL (70-99)
== END 2017-08-06 13:44 | DRG 3 ==
LOC: EME → EDBD 20:44 → EME 20:44 → 5SOUTH 06-28 00:55 → 4WEST 06-28 00:55 → 4EAST 06-28 00:55 → 4WEST 06-28 00:55 → EDOF 06-28 00:55 → ENRESERV 06-28 00:57 → 5SOUTH 06-28 02:28 → ENRESERV 06-28 14:49 → 4EAST 06-28 15:57 → ENRESERV 07-05 19:56 → 2EAST 07-05 20:44 → ENRESERV 07-06 13:25 → 4EAST 07-06 13:35 → ENRESERV 07-16 14:38 → 4EAST 07-16 14:40 → ENRESERV 07-16 21:46 → 4WEST 07-16 22:05 → ENRESERV 07-21 11:43 → CANRESERV 07-21 11:43 → 4WEST 07-21 12:00 → CANRESERV 07-21 12:07 → ENRESERV 07-21 12:07 → 4EAST 07-23 10:24 → ENRESERV 07-23 17:07 → 4WEST 07-23 17:09
PROVIDERS: Emergency Medicine; Hospitalist; Internal Medicine; Internal Medicine Critical Care Medicine; Obstetrics & Gynecology; Physician Assistant; Physician Assistant Medical; Radiology Diagnostic Radiology; Specialist; Student in an Organized Health Care Education/Training Program; Surgery
PROC: 3E0436Z Introduction of Nutritional Substance into Central Vein, Percutaneous Approach (ICD-10-PCS; principal; 2017-07-09)
PROC: 3E0G76Z Introduction of Nutritional Substance into Upper GI, Via Natural or Artificial Opening (ICD-10-PCS; 2017-07-09)
PROC: 0W9F30Z Drainage of Abdominal Wall with Drainage Device, Percutaneous Approach (ICD-10-PCS; 2017-07-12)
PROC: 0DTN0ZZ Resection of Sigmoid Colon, Open Approach (ICD-10-PCS; 2017-07-16)
PROC: 0D1N0Z4 Bypass Sigmoid Colon to Cutaneous, Open Approach (ICD-10-PCS; 2017-07-16)
PROC: 02HV33Z Insertion of Infusion Device into Superior Vena Cava, Percutaneous Approach (ICD-10-PCS; 2017-07-16)
PROC: 5A1945Z Respiratory Ventilation, 24-96 Consecutive Hours (ICD-10-PCS; 2017-07-16)
PROC: 30233N1 Transfusion of Nonautologous Red Blood Cells into Peripheral Vein, Percutaneous Approach (ICD-10-PCS; 2017-07-19)
PROC: 3E1M38Z Irrigation of Peritoneal Cavity using Irrigating Substance, Percutaneous Approach (ICD-10-PCS; 2017-07-23)
PROC: 03HY32Z Insertion of Monitoring Device into Upper Artery, Percutaneous Approach (ICD-10-PCS; 2017-07-23)
PROC: 0WQF0ZZ Repair Abdominal Wall, Open Approach (ICD-10-PCS; 2017-07-23)
PROC: 5A1955Z Respiratory Ventilation, Greater than 96 Consecutive Hours (ICD-10-PCS; 2017-08-03)
PROC: 0B110F4 Bypass Trachea to Cutaneous with Tracheostomy Device, Open Approach (ICD-10-PCS; 2017-08-03)
PROC: 0DH63UZ Insertion of Feeding Device into Stomach, Percutaneous Approach (ICD-10-PCS; 2017-08-03)
DX: T81.30XA Disruption of wound, unspecified, initial encounter (principal); A41.9 Sepsis, unspecified organism; K65.1 Peritoneal abscess; N17.9 Acute kidney failure, unspecified; I26.99 Other pulmonary embolism without acute cor pulmonale; J15.212 Pneumonia due to Methicillin resistant Staphylococcus aureus; J95.821 Acute postprocedural respiratory failure; E43 Unspecified severe protein-calorie malnutrition; R65.21 Severe sepsis with septic shock; E87.70 Fluid overload, unspecified; L10.0 Pemphigus vulgaris; R65.20 Severe sepsis without septic shock; J98.11 Atelectasis; D69.6 Thrombocytopenia, unspecified; L12.0 Bullous pemphigoid; L03.116 Cellulitis of left lower limb; I48.92 Unspecified atrial flutter; E11.9 Type 2 diabetes mellitus without complications; E87.3 Alkalosis; I10 Essential (primary) hypertension; I48.0 Paroxysmal atrial fibrillation; S80.822A Blister (nonthermal), left lower leg, initial encounter; N13.8 Other obstructive and reflux uropathy; E03.9 Hypothyroidism, unspecified; I47.2 Ventricular tachycardia; I27.20 Pulmonary hypertension, unspecified; I34.0 Nonrheumatic mitral (valve) insufficiency; I49.3 Ventricular premature depolarization; K66.8 Other specified disorders of peritoneum; R13.10 Dysphagia, unspecified; E66.01 Morbid (severe) obesity due to excess calories; Y95 Nosocomial condition; B00.9 Herpesviral infection, unspecified; D64.9 Anemia, unspecified; F41.9 Anxiety disorder, unspecified; N40.1 Benign prostatic hyperplasia with lower urinary tract symptoms; H91.90 Unspecified hearing loss, unspecified ear; Z87.891 Personal history of nicotine dependence; Z88.0 Allergy status to penicillin; Z68.37 Body mass index [BMI] 37.0-37.9, adult; Z59.9 Problem related to housing and economic circumstances, unspecified; Z79.82 Long term (current) use of aspirin; Z91.19 Patient's noncompliance with other medical treatment and regimen; Z82.5 Family history of asthma and other chronic lower respiratory diseases; Z83.3 Family history of diabetes mellitus
CPT/HCPCS: 36600; 70450; 71045; 74177; 75989; 76937; 80048; 80048 91; 80053; 80162; 80202; 81003; 81050; 82248; 82330; 82533 91; 82803; 82948; 83605; 83690; 83735; 83880; 84100; 84134; 84145 90; 84478; 84484; 84540; 84630 90; 84999; 85014; 85018; 85025; 85025 91; 85027; 85610; 85730; 86141; 86850; 86900; 86901; 86920; 87040; 87070; 87075; 87076; 87077; 87106; 87147; 87185; 87186; 87205; 87502; 87641; 88307; 92526 GN; 92610 GN; 93005; 93306; 93971; 94002; 94003; 94640; 94640 76; 94760; 94799; 97530 GO; 97530 GP; 99202; 99281; 99285; A6212; A6214; A6260; C1729; C1751; C1769; C9113; J0131; J0133; J0330; J0692; J0744; J1160; J1170; J1335; J1450; J1650; J1652; J1720; J1815; J1940; J1956; J2060; J2250; J2270; J2370; J2405; J2704; J2920; J2930; J3010; J3370; J3475; J3480; J7030; J7040; J7050; J7120; J7512; P9016; P9045; P9047; S0028; S0030; S0074

== ENCOUNTER 2017-08-13 18:34 | Inpatient (IN) | payer OTHER ==
[~2017-08-13] VITALS: Ht 182.9 cm; Wt 110.7 kg
[~2017-08-13 18:34] MED LIST changes: +ASPIR 8181 M1 PO; +ATENOLOL50 MG PO; +DELTASONE20 M1 PO; +HYDROCODON-ACE1 EAC7 PO; +LEVOXYL50 MCG GT
[2017-08-13 20:06] LABS: INTER. NORMALIZED RATIO 1.3
[2017-08-13 20:08] LABS: ALBUMIN 3.2 g/dL (3.2-4.8)
[2017-08-13 20:09] LABS: CHLORIDE 100 mEq/L (99-109); POTASSIUM 4.6 mEq/L (3.7-5.4); SODIUM 134 mEq/L (136-147)
[2017-08-13 20:11] LABS: BASOPHIL (%) 0.2 % (0-1); EOSINOPHIL (%) 0 % (0-5); GLUCOSE 157 mg/dL (70-99); HEMATOCRIT 30.2 % (38.0-50.0); HEMOGLOBIN 9.7 G/DL (12.5-16.6); IMMATURE GRANULOCYTE (%) 3.6 % (0.0-0.7); LYMPHOCYTE (%) 2.5 % (15-42); LYMPHOCYTE COUNT 0.4 K/uL (1.0-2.8); MCH 29.7 PG (29.0-34.0); MCHC 32.1 G/DL (30.0-36.0); MONOCYTE (%) 6.1 % (3-12); MONOCYTE COUNT 0.9 K/uL (0-0.8); NEUTROPHIL (%) 87.6 % (45-76); NEUTROPHIL COUNT 13.5 K/uL (1.8-6.4); PLATELET COUNT 307 K/uL (156-360); RBC DIS.WIDTH-CV 16.2 % (11.8-14.6); RBC DIS.WIDTH-SD 55.4 % (39-53); RED BLOOD COUNT 3.27 M/uL (4.00-5.50); TOTAL PROTEIN 5.5 g/dL (6.4-8.3); WHITE BLOOD COUNT 15.4 K/uL (4.1-10.2)
[2017-08-13 20:13] LABS: TOTAL BILIRUBIN 0.8 mg/dL (0.0-1.0)
[2017-08-13 20:14] LABS: ALKALINE PHOSPHATASE 236 IU/L (3-129); CREATININE 0.6 mg/dL (0.6-1.3); GFR ESTIMATE (CALCULATED) > 59 mL/min/ (58.99-99999)
[2017-08-13 20:15] LABS: MCV 92.4 FL (86-99)
[2017-08-13 20:16] LABS: AST (GOT) 28 IU/L (2-34); UREA NITROGEN (BUN) 20 mg/dL (9-23)
[2017-08-13 20:17] LABS: ALT (GPT) 88 IU/L (3-49)
[2017-08-13 20:18] LABS: LIPASE 40 U/L (1.0-51.0)
[2017-08-13 20:22] LABS: TROP-I INTERPRETATION NEGATIVE; TROPONIN-I 0.01 ng/mL (0.0-0.30)
[2017-08-13 22:51] LABS: TROP-I INTERPRETATION NEGATIVE; TROPONIN-I 0.02 ng/mL (0.0-0.30)
[2017-08-14] LABS: APPEARANCE SL.HAZY ((CLEAR)); BILIRUBIN NEGATIVE; BLOOD SMALL; COLOR YELLOW ((YELLOW)); GLUCOSE (STRIP) NEGATIVE; KETONES NEGATIVE; LEUKOCYTES LARGE; NITRITE POSITIVE; PROTEIN (STRIP) 30; SPECIFIC GRAVITY 1.011 (1.000-1.030); UROBILINOGEN 0.2 MG/DL (0.2-1.0)
[2017-08-14 00:08] LABS: BACTERIA 2+ /HPF; EPITHELIAL CELLS NONE SEEN /HPF; MUCUS NONE SEEN /LPF; RED BLOOD CELLS 20-30 /HPF (0-5); UCUL ADDED? YES; WHITE BLOOD CELLS 20-30 /HPF (0-5)
[2017-08-14] MEDS ORDERED: SILTUSSIN100 MG/51 GT (00:41)
[2017-08-14] MEDS ORDERED: CARDIZEM90 MG PO (00:46)
[2017-08-14] MEDS ORDERED: LOVENOX100 MG/1 M SC (00:48)
[2017-08-14] MEDS ORDERED: LOPRESSOR25 MG GT (00:50)
[2017-08-14] MEDS ORDERED: MYCOSTATIN 100,60 ML PO (00:54)
[2017-08-14] MEDS ORDERED: DELTASONE20 M1 GT (00:57)
[2017-08-14] MEDS ORDERED: POTASSIUM20 MEQ/11 GT (01:06)
[2017-08-14] MEDS ORDERED: PROTONIX40 M1 GT (01:08)
[2017-08-14] MEDS ORDERED: NOVOLOG 10100 UNITS/ SC (01:13)
[2017-08-14] MEDS ORDERED: LASIX20 MG GT (01:15)
[2017-08-14] MEDS ORDERED: ALDACTONE50 MG GT (01:17)
[2017-08-14] MEDS ORDERED: LEVEMIR100 UNIT/2 SC (01:18)
[2017-08-14] MEDS ORDERED: TYLENOL REGULA325 MG GT (01:20)
[2017-08-14] MEDS ORDERED: ROXICODONE5 MG GT (01:21)
[2017-08-14] MEDS ORDERED: [UNRECOGNIZED DRUG - OTHER] BOTH EYES (01:23)
[2017-08-14] MEDS ORDERED: GLUCAGEN1 MG/1 ML IM (01:25)
[2017-08-14 03:40] LABS: BICARBONATE 24.7 mEq/L (22-26); CARBOXY HGB 2.5 % (0-5); METHEMOGLOBIN 1.3 % (0-1.5); pH 7.51 (7.35-7.45)
[2017-08-14 03:41] LABS: COMMENTS - BLOOD GASES C+; DEVICE VENT; FI02 40 %; MECHANICAL RATE 8 resp/min; MODE SIMV; PCO2 31 mm Hg (35-45); PEEP 5 CM/H20; PO2 61 mm Hg (80-100); PRES. SUPPORT 10 CM/H2O; SITE RR; TIDAL VOLUME 450 ML; TOTAL RESP RATE 22 resp/min
[2017-08-14 05:53] LABS: BASOPHIL (%) 0.2 % (0-1); EOSINOPHIL (%) 0.1 % (0-5); HEMATOCRIT 31.9 % (38.0-50.0); HEMOGLOBIN 10.1 G/DL (12.5-16.6); IMMATURE GRANULOCYTE (%) 2.3 % (0.0-0.7); LYMPHOCYTE (%) 4.4 % (15-42); LYMPHOCYTE COUNT 0.7 K/uL (1.0-2.8); MCH 29.2 PG (29.0-34.0); MCHC 31.7 G/DL (30.0-36.0); MCV 92.2 FL (86-99); MONOCYTE (%) 6.7 % (3-12); NEUTROPHIL (%) 86.3 % (45-76); NEUTROPHIL COUNT 12.7 K/uL (1.8-6.4); PLATELET COUNT 332 K/uL (156-360); RBC DIS.WIDTH-CV 16.4 % (11.8-14.6); RBC DIS.WIDTH-SD 55.4 % (39-53); RED BLOOD COUNT 3.46 M/uL (4.00-5.50); WHITE BLOOD COUNT 14.7 K/uL (4.1-10.2)
[2017-08-14 05:54] LABS: ALBUMIN 3.2 g/dL (3.2-4.8); CHLORIDE 100 mEq/L (99-109); POTASSIUM 3.9 mEq/L (3.7-5.4); SODIUM 137 mEq/L (136-147)
[2017-08-14 05:56] LABS: GLUCOSE 121 mg/dL (70-99)
[2017-08-14 05:57] LABS: TOTAL PROTEIN 5.7 g/dL (6.4-8.3)
[2017-08-14 06:00] LABS: ALKALINE PHOSPHATASE 223 IU/L (3-129); CREATININE 0.6 mg/dL (0.6-1.3); GFR ESTIMATE (CALCULATED) > 59 mL/min/ (58.99-99999)
[2017-08-14 06:01] LABS: UREA NITROGEN (BUN) 18 mg/dL (9-23)
[2017-08-14 06:02] LABS: AST (GOT) 38 IU/L (2-34); DIRECT BILIRUBIN 0.5 mg/dL (0.0-0.3)
[2017-08-14 06:03] LABS: ALT (GPT) 87 IU/L (3-49)
[2017-08-14 06:08] LABS: TROP-I INTERPRETATION NEGATIVE; TROPONIN-I 0.01 ng/mL (0.0-0.30)
[2017-08-14 08:02] VITALS: BP 132/112
[2017-08-14 08:48] VITALS: BP 109/87
[2017-08-14 11:14] LABS: TROP-I INTERPRETATION NEGATIVE; TROPONIN-I 0.01 ng/mL (0.0-0.30)
[2017-08-14 12:02] VITALS: BP 118/78
[2017-08-14 20:00] VITALS: BP 112/70
[2017-08-15 00:02] VITALS: BP 98/62
[2017-08-15 03:02] VITALS: BP 109/62
[2017-08-15 05:30] LABS: HEMATOCRIT 31.4 % (38.0-50.0); HEMOGLOBIN 9.9 G/DL (12.5-16.6); MCH 29.1 PG (29.0-34.0); MCHC 31.5 G/DL (30.0-36.0); MCV 92.4 FL (86-99); PLATELET COUNT 305 K/uL (156-360); RBC DIS.WIDTH-CV 16.4 % (11.8-14.6); RBC DIS.WIDTH-SD 55.7 % (39-53); WHITE BLOOD COUNT 10.5 K/uL (4.1-10.2)
[2017-08-15 05:56] LABS: CHLORIDE 102 MEQ/L (99-109); CREATININE 0.5 MG/DL (0.6-1.3); GFR ESTIMATE (CALCULATED) > 59 mL/min/ (58.99-99999); POTASSIUM 3.5 MEQ/L (3.7-5.4); SODIUM 134 MEQ/L (136-147); UREA NITROGEN (BUN) 22 mg/dL (9-23)
[2017-08-15 06:22] LABS: GLUCOSE 86 mg/dL (70-99)
[2017-08-15 09:06] LABS: MAGNESIUM 1.7 mg/dl (1.3-2.7)
[2017-08-15 12:02] VITALS: BP 103/64
[2017-08-15 18:02] VITALS: BP 113/66
[2017-08-15 20:00] VITALS: BP 109/61
[2017-08-16] VITALS (13 sets, daily range): BP systolic 99–126; BP diastolic 61–85
[2017-08-16 05:21] LABS: BASOPHIL (%) 0.4 % (0-1); EOSINOPHIL (%) 2.2 % (0-5); EOSINOPHIL COUNT 0.2 K/uL (0-0.3); HEMATOCRIT 30.8 % (38.0-50.0); HEMOGLOBIN 9.5 G/DL (12.5-16.6); LYMPHOCYTE (%) 3.9 % (15-42); LYMPHOCYTE COUNT 0.3 K/uL (1.0-2.8); MCH 28.4 PG (29.0-34.0); MCHC 30.8 G/DL (30.0-36.0); MCV 92.2 FL (86-99); MONOCYTE COUNT 0.4 K/uL (0-0.8); NEUTROPHIL (%) 86.5 % (45-76); NEUTROPHIL COUNT 7.4 K/uL (1.8-6.4); PLATELET COUNT 303 K/uL (156-360); RBC DIS.WIDTH-CV 15.9 % (11.8-14.6); RBC DIS.WIDTH-SD 53.4 % (39-53); RED BLOOD COUNT 3.34 M/uL (4.00-5.50); WHITE BLOOD COUNT 8.5 K/uL (4.1-10.2)
[2017-08-16 05:46] LABS: ALBUMIN 2.6 G/DL (3.2-4.8); ALKALINE PHOSPHATASE 146 IU/L (3-129); ALT (GPT) 56 IU/L (3-49); AST (GOT) 18 IU/L (2-34); CHLORIDE 105 MEQ/L (99-109); CREATININE 0.5 MG/DL (0.6-1.3); GFR ESTIMATE (CALCULATED) > 59 mL/min/ (58.99-99999); POTASSIUM 3.7 MEQ/L (3.7-5.4); SODIUM 135 MEQ/L (136-147); TOTAL BILIRUBIN 0.5 MG/DL (0.0-1.0); TOTAL PROTEIN 4.8 G/DL (6.4-8.3); UREA NITROGEN (BUN) 29 mg/dL (9-23)
[2017-08-16 05:48] LABS: GLUCOSE 158 mg/dL (70-99)
[2017-08-17] VITALS (23 sets, daily range): BP systolic 95–151; BP diastolic 57–88
[2017-08-17 08:26] LABS: HEMATOCRIT 32.4 % (38.0-50.0); HEMOGLOBIN 10.2 G/DL (12.5-16.6); MCH 28.9 PG (29.0-34.0); MCHC 31.5 G/DL (30.0-36.0); MCV 91.8 FL (86-99); PLATELET COUNT 288 K/uL (156-360); RBC DIS.WIDTH-CV 15.9 % (11.8-14.6); RBC DIS.WIDTH-SD 52.6 % (39-53); RED BLOOD COUNT 3.53 M/uL (4.00-5.50); WHITE BLOOD COUNT 8.7 K/uL (4.1-10.2)
[2017-08-17 08:52] LABS: CHLORIDE 105 MEQ/L (99-109); CREATININE 0.5 MG/DL (0.6-1.3); GFR ESTIMATE (CALCULATED) > 59 mL/min/ (58.99-99999); POTASSIUM 3.8 MEQ/L (3.7-5.4); SODIUM 136 MEQ/L (136-147); UREA NITROGEN (BUN) 30 mg/dL (9-23)
[2017-08-17 08:53] LABS: GLUCOSE 105 mg/dL (70-99)
[2017-08-18] VITALS (17 sets, daily range): BP systolic 80–146; BP diastolic 50–96
[2017-08-18 20:45] LABS: BASE EXCESS -4.2 mEq/L (-3 to +3); BICARBONATE 18.8 mEq/L (22-26); CARBOXY HGB 1.7 % (0-5); COMMENTS - BLOOD GASES A+C+; DEVICE VENT; METHEMOGLOBIN 1.7 % (0-1.5); PCO2 27 mm Hg (35-45); PO2 115 mm Hg (80-100); SITE RR; pH 7.45 (7.35-7.45)
[2017-08-18 20:46] LABS: FI02 30 %; MODE PRESSURE SUPPORT; PEEP 5 CM/H20; PRES. SUPPORT 10 CM/H2O; TOTAL RESP RATE 16 resp/min
[2017-08-19] VITALS (12 sets, daily range): BP systolic 92–150; BP diastolic 51–91
[2017-08-19 04:40] LABS: CHLORIDE 106 mEq/L (99-109); SODIUM 135 mEq/L (136-147)
[2017-08-19 04:42] LABS: GLUCOSE 112 mg/dL (70-99)
[2017-08-19 04:46] LABS: CREATININE 0.5 mg/dL (0.6-1.3); GFR ESTIMATE (CALCULATED) > 59 mL/min/ (58.99-99999)
[2017-08-19 04:47] LABS: UREA NITROGEN (BUN) 31 mg/dL (9-23)
[2017-08-19 04:50] LABS: BASOPHIL (%) 0.5 % (0-1); BASOPHIL COUNT 0.1 K/uL (0-0.1); EOSINOPHIL (%) 1.4 % (0-5); EOSINOPHIL COUNT 0.1 K/uL (0-0.3); HEMATOCRIT 33.5 % (38.0-50.0); HEMOGLOBIN 10.6 G/DL (12.5-16.6); LYMPHOCYTE (%) 5.5 % (15-42); LYMPHOCYTE COUNT 0.5 K/uL (1.0-2.8); MCH 29.1 PG (29.0-34.0); MCHC 31.6 G/DL (30.0-36.0); MONOCYTE (%) 8.4 % (3-12); MONOCYTE COUNT 0.8 K/uL (0-0.8); NEUTROPHIL (%) 79.2 % (45-76); NEUTROPHIL COUNT 7.8 K/uL (1.8-6.4); NRBC (%) 0.3 /100 WBC (0-0); PLATELET COUNT 282 K/uL (156-360); RBC DIS.WIDTH-CV 15.8 % (11.8-14.6); RBC DIS.WIDTH-SD 53.4 % (39-53); RED BLOOD COUNT 3.64 M/uL (4.00-5.50); WHITE BLOOD COUNT 9.8 K/uL (4.1-10.2)
[2017-08-19 20:29] LABS: HEMATOCRIT 34.6 % (38.0-50.0); HEMOGLOBIN 10.9 G/DL (12.5-16.6); MCH 28.4 PG (29.0-34.0); MCHC 31.5 G/DL (30.0-36.0); MCV 90.1 FL (86-99); NRBC (%) 0.4 /100 WBC (0-0); PLATELET COUNT 328 K/uL (156-360); RBC DIS.WIDTH-CV 15.6 % (11.8-14.6); RBC DIS.WIDTH-SD 50.7 % (39-53); RED BLOOD COUNT 3.84 M/uL (4.00-5.50); WHITE BLOOD COUNT 12.8 K/uL (4.1-10.2)
[2017-08-20 00:45] VITALS: BP 137/95
[2017-08-20 04:00] VITALS: BP 131/75
[2017-08-20 05:35] LABS: HEMATOCRIT 33.1 % (38.0-50.0); HEMOGLOBIN 10.4 G/DL (12.5-16.6); MCH 28.2 PG (29.0-34.0); MCHC 31.4 G/DL (30.0-36.0); MCV 89.7 FL (86-99); NRBC (%) 0.3 /100 WBC (0-0); PLATELET COUNT 314 K/uL (156-360); RBC DIS.WIDTH-CV 15.9 % (11.8-14.6); RBC DIS.WIDTH-SD 51.8 % (39-53); RED BLOOD COUNT 3.69 M/uL (4.00-5.50); WHITE BLOOD COUNT 10.7 K/uL (4.1-10.2)
[2017-08-20 06:09] LABS: ABS NEUTROPHIL COUNT 10.3; ANISOCYTOSIS 1+; EOSINOPHIL ABS CT 0.1; EOSINOPHILS 0.9 % (0-5.0); METAMYELOCYTES 0.9 %; MICROCYTOSIS 1+; MONOCYTES 1.8 % (0-9.0); PLAT.SUFFICIENCY ADEQUATE; SPHEROCYTES 2+
[2017-08-20 06:26] LABS: CHLORIDE 106 MEQ/L (99-109); CREATININE 0.4 MG/DL (0.6-1.3); GFR ESTIMATE (CALCULATED) > 59 mL/min/ (58.99-99999); GLUCOSE 137 mg/dL (70-99); POTASSIUM 3.5 MEQ/L (3.7-5.4); SODIUM 136 MEQ/L (136-147); UREA NITROGEN (BUN) 23 mg/dL (9-23)
[2017-08-20 06:27] LABS: SEG.NEUTROPHILS 96.4 % (46.0-76.0)
[2017-08-20] MEDS ORDERED: CEFEPIME HCL2 GM IV (11:36)
[2017-08-20] MEDS ORDERED: VANCOMYCIN HCL1 GM IV (11:37)
[2017-08-20] MEDS ORDERED: DUONEB 2.5-0.5 M3 ML AEROSOL (11:39)
[2017-08-20] MEDS ORDERED: SOD CITRATE-CI473 ML GT (11:40)
[2017-08-20] MEDS ORDERED: CARDIZEM60 MG GT (11:40)
[2017-08-20] MEDS ORDERED: FLAGYL500 MG/100 IV (11:42)
== END 2017-08-20 14:41 | disposition designated cancer center or children's hospital (05) | DRG 919 ==
LOC: EME → EDBD 18:34 → EDOF 08-14 03:07 → 4WEST 08-14 03:07 → ENRESERV 08-14 03:10 → 4WEST 08-14 07:19 → ENRESERV 08-19 13:29 → 4EAST 08-19 16:52
PROVIDERS: Emergency Medicine; Family Medicine; Hospitalist; Internal Medicine; Internal Medicine Medical Oncology
PROC: 5A1955Z Respiratory Ventilation, Greater than 96 Consecutive Hours (ICD-10-PCS; principal; 2017-08-14)
PROC: 0H97XZZ Drainage of Abdomen Skin, External Approach (ICD-10-PCS; 2017-08-19)
DX: L76.34 Postprocedural seroma of skin and subcutaneous tissue following other procedure (principal); A41.9 Sepsis, unspecified organism; N39.0 Urinary tract infection, site not specified; B96.5 Pseudomonas (aeruginosa) (mallei) (pseudomallei) as the cause of diseases classified elsewhere; T81.30XA Disruption of wound, unspecified, initial encounter; Y83.3 Surgical operation with formation of external stoma as the cause of abnormal reaction of the patient, or of later complication, without mention of misadventure at the time of the procedure; L12.0 Bullous pemphigoid; J96.21 Acute and chronic respiratory failure with hypoxia; I26.99 Other pulmonary embolism without acute cor pulmonale; I82.413 Acute embolism and thrombosis of femoral vein, bilateral; I82.422 Acute embolism and thrombosis of left iliac vein; E03.9 Hypothyroidism, unspecified; E11.9 Type 2 diabetes mellitus without complications; E87.4 Mixed disorder of acid-base balance; F41.9 Anxiety disorder, unspecified; I11.0 Hypertensive heart disease with heart failure; I50.9 Heart failure, unspecified; I48.2 Chronic atrial fibrillation; D64.9 Anemia, unspecified; E66.9 Obesity, unspecified; Z86.711 Personal history of pulmonary embolism; Z68.31 Body mass index [BMI] 31.0-31.9, adult; Z87.891 Personal history of nicotine dependence; Z93.0 Tracheostomy status; Z99.11 Dependence on respirator [ventilator] status; Z22.322 Carrier or suspected carrier of Methicillin resistant Staphylococcus aureus; Z79.82 Long term (current) use of aspirin; Z93.1 Gastrostomy status; Z93.3 Colostomy status; Z90.49 Acquired absence of other specified parts of digestive tract
CPT/HCPCS: 36600; 71045; 71275; 74018; 74177; 80048; 80053; 80076; 80162; 80202; 81003; 82800; 82803; 82948; 83605; 83690; 83735; 83880; 84145 90; 84484; 85025; 85027; 85379; 85610; 87040; 87070; 87077; 87081; 87086; 87147; 87186; 87205; 87449; 87502; 87641; 93005; 93970; 94002; 94003; 94760; 94799; 97530 GP; 99202; 99281; 99285; A6212; J0456; J0692; J1160; J1650; J1720; J1815; J1940; J3370; J7030; J7512; S0030

== ENCOUNTER → 2017-10-27 | Outpatient (CLI) | payer OTHER ==
[~2017-10-27] MED LIST changes: +ALDACTONE50 MG GT; +CARDIZEM60 MG GT; +CARDIZEM90 MG PO; +CEFEPIME HCL2 GM IV; +DELTASONE20 M1 GT; +DUONEB 2.5-0.5 M3 ML AEROSOL; +FLAGYL500 MG/100 IV; +GLUCAGEN1 MG/1 ML IM; +LASIX20 MG GT; +LEVEMIR100 UNIT/2 SC; +LOPRESSOR25 MG GT; +LOVENOX100 MG/1 M SC; +MYCOSTATIN 100,60 ML PO; +NOVOLOG 10100 UNITS/ SC; +POTASSIUM20 MEQ/11 GT; +PROTONIX40 M1 GT; +ROXICODONE5 MG GT; +SILTUSSIN100 MG/51 GT; +SOD CITRATE-CI473 ML GT; +TYLENOL REGULA325 MG GT; +VANCOMYCIN HCL1 GM IV; +[UNRECOGNIZED DRUG - OTHER] BOTH EYES
== END | disposition home or self-care (01) ==
LOC: RAD 09:52
DX: R13.12 Dysphagia, oropharyngeal phase (principal); Z87.01 Personal history of pneumonia (recurrent)
CPT/HCPCS: 74230; 92611 GN; G8996 GN CJ; G8997 GN CJ; G8998 GN CJ

== ENCOUNTER 2017-11-29 07:53 | Inpatient (IN) | payer OTHER ==
[~2017-11-29] VITALS: Ht 172.7 cm; Wt 110.4 kg
[~2017-11-29 07:53] MED LIST changes: -DELTASONE20 M1 GT; -LASIX20 MG GT; +LASIX20 MG PO; -LEVOXYL50 MCG GT; +LEVOXYL50 MCG PO; -LOPRESSOR25 MG GT; +LOPRESSOR25 MG PO; -POTASSIUM20 MEQ/11 GT; +POTASSIUM20 MEQ/11 PO; -PROTONIX40 M1 GT; +PROTONIX40 MG PO; -ROXICODONE5 MG GT; +ROXICODONE5 MG PO; -TYLENOL REGULA325 MG GT; +TYLENOL REGULA325 MG PO
[2017-11-29 08:33] LABS: BASOPHIL (%) 0.7 % (0-1); BASOPHIL COUNT 0.1 K/uL (0-0.1); EOSINOPHIL (%) 9.9 % (0-5); EOSINOPHIL COUNT 1.1 K/uL (0-0.3); HEMATOCRIT 41.6 % (38.0-50.0); HEMOGLOBIN 13.3 G/DL (12.5-16.6); IMMATURE GRANULOCYTE (%) 0.9 % (0.0-0.7); LYMPHOCYTE (%) 10.2 % (15-42); LYMPHOCYTE COUNT 1.1 K/uL (1.0-2.8); MCH 25.3 PG (29.0-34.0); MCV 79.2 FL (86-99); MONOCYTE (%) 10.8 % (3-12); MONOCYTE COUNT 1.2 K/uL (0-0.8); NEUTROPHIL (%) 67.5 % (45-76); NEUTROPHIL COUNT 7.5 K/uL (1.8-6.4); PLATELET COUNT 246 K/uL (156-360); RBC DIS.WIDTH-CV 15.7 % (11.8-14.6); RBC DIS.WIDTH-SD 44.8 % (39-53); RED BLOOD COUNT 5.25 M/uL (4.00-5.50)
[2017-11-29 08:40] LABS: INTER. NORMALIZED RATIO 1.8
[2017-11-29 08:43] LABS: PTT 29.4 SEC (25-37)
[2017-11-29 09:03] LABS: TROP-I INTERPRETATION NEGATIVE; TROPONIN-I 0.01 ng/mL (0.0-0.30)
[2017-11-29 09:14] LABS: ALBUMIN 3.6 G/DL (3.2-4.8); ALKALINE PHOSPHATASE 59 IU/L (3-129); ALT (GPT) 18 IU/L (3-49); AST (GOT) 17 IU/L (2-34); CHLORIDE 103 MEQ/L (99-109); CREATININE 0.9 MG/DL (0.6-1.3); GFR ESTIMATE (CALCULATED) > 59 mL/min/ (58.99-99999); GLUCOSE 118 mg/dL (70-99); POTASSIUM 3.8 MEQ/L (3.7-5.4); SODIUM 136 MEQ/L (136-147); TOTAL BILIRUBIN 0.8 MG/DL (0.0-1.0); TOTAL PROTEIN 6.2 G/DL (6.4-8.3); UREA NITROGEN (BUN) 9 mg/dL (9-23)
[2017-11-29 12:03] LABS: APPEARANCE CLEAR ((CLEAR)); BILIRUBIN NEGATIVE; BLOOD NEGATIVE; COLOR YELLOW ((YELLOW)); GLUCOSE (STRIP) NEGATIVE; KETONES NEGATIVE; LEUKOCYTES MODERATE; NITRITE POSITIVE; PROTEIN (STRIP) 30; SPECIFIC GRAVITY 1.021 (1.000-1.030); UROBILINOGEN 0.2 MG/DL (0.2-1.0)
[2017-11-29 12:09] LABS: BACTERIA RARE /HPF; EPITHELIAL CELLS RARE /HPF; HYALINE CASTS 0-5 /LPF; MUCUS TRACE /LPF; RED BLOOD CELLS 0-5 /HPF (0-5); UCUL ADDED? YES; WHITE BLOOD CELLS TNTC /HPF (0-5)
[2017-11-29 12:32] VITALS: BP 134/88
[2017-11-29] MEDS ORDERED: XARELTO20 MG PO (12:44)
[2017-11-29] MEDS ORDERED: SENNA8.6 MG PO (12:44)
[2017-11-29] MEDS ORDERED: BENADRYL25 MG PO (12:45)
[2017-11-29] MEDS ORDERED: DOCU LIQUI50 MG/5 ML PO (12:47)
[2017-11-29] MEDS ORDERED: ADVAIR HFA120 INHALA IH (12:48)
[2017-11-29] MEDS ORDERED: CARDIZEM60 MG PO (12:58)
[2017-11-29 14:58] VITALS: BP 134/80
[2017-11-29 19:39] VITALS: BP 124/68
[2017-11-30] VITALS: BP 112/79
[2017-11-30 05:09] VITALS: BP 103/65
[2017-11-30 05:53] LABS: BASOPHIL (%) 0.1 % (0-1); EOSINOPHIL (%) 0.4 % (0-5); EOSINOPHIL COUNT 0.1 K/uL (0-0.3); HEMATOCRIT 39.3 % (38.0-50.0); HEMOGLOBIN 12.4 G/DL (12.5-16.6); IMMATURE GRANULOCYTE (%) 0.6 % (0.0-0.7); LYMPHOCYTE (%) 1.5 % (15-42); LYMPHOCYTE COUNT 0.2 K/uL (1.0-2.8); MCH 25.3 PG (29.0-34.0); MCHC 31.6 G/DL (30.0-36.0); MCV 80.2 FL (86-99); MONOCYTE (%) 2.2 % (3-12); MONOCYTE COUNT 0.3 K/uL (0-0.8); NEUTROPHIL (%) 95.2 % (45-76); PLATELET COUNT 267 K/uL (156-360); RBC DIS.WIDTH-CV 15.7 % (11.8-14.6); WHITE BLOOD COUNT 13.7 K/uL (4.1-10.2)
[2017-11-30 06:19] LABS: CHLORIDE 103 MEQ/L (99-109); CREATININE 0.9 MG/DL (0.6-1.3); GFR ESTIMATE (CALCULATED) > 59 mL/min/ (58.99-99999); GLUCOSE 162 mg/dL (70-99); POTASSIUM 4.2 MEQ/L (3.7-5.4); SODIUM 138 MEQ/L (136-147); UREA NITROGEN (BUN) 10 mg/dL (9-23)
[2017-11-30 07:48] VITALS: BP 111/68
[2017-11-30 11:22] VITALS: BP 100/66
[2017-11-30 15:30] VITALS: BP 102/70
[2017-11-30 21:35] VITALS: BP 102/66
[2017-12-01 01:00] VITALS: BP 126/84
[2017-12-01 06:08] VITALS: BP 87/52
[2017-12-01 08:00] VITALS: BP 105/68
[2017-12-01 09:02] LABS: HEMATOCRIT 39.3 % (38.0-50.0); HEMOGLOBIN 12.5 G/DL (12.5-16.6); MCH 25.7 PG (29.0-34.0); MCHC 31.8 G/DL (30.0-36.0); MCV 80.7 FL (86-99); PLATELET COUNT 249 K/uL (156-360); RBC DIS.WIDTH-CV 15.8 % (11.8-14.6); RBC DIS.WIDTH-SD 45.4 % (39-53); RED BLOOD COUNT 4.87 M/uL (4.00-5.50); WHITE BLOOD COUNT 10.5 K/uL (4.1-10.2)
[2017-12-01 09:34] LABS: CHLORIDE 104 MEQ/L (99-109); CREATININE 0.9 MG/DL (0.6-1.3); GFR ESTIMATE (CALCULATED) > 59 mL/min/ (58.99-99999); GLUCOSE 111 mg/dL (70-99); POTASSIUM 4.3 MEQ/L (3.7-5.4); SODIUM 137 MEQ/L (136-147); UREA NITROGEN (BUN) 16 mg/dL (9-23)
[2017-12-01 11:34] VITALS: BP 107/70
[2017-12-01 16:16] VITALS: BP 121/86
[2017-12-01 19:39] VITALS: BP 133/71
[2017-12-02] VITALS (8 sets, daily range): BP systolic 108–145; BP diastolic 62–87
[2017-12-03 00:46] VITALS: BP 138/100
[2017-12-03 04:28] VITALS: BP 124/80
[2017-12-03 06:28] LABS: HEMATOCRIT 37.9 % (38.0-50.0); HEMOGLOBIN 12.3 G/DL (12.5-16.6); MCH 26.1 PG (29.0-34.0); MCHC 32.5 G/DL (30.0-36.0); MCV 80.3 FL (86-99); PLATELET COUNT 284 K/uL (156-360); RBC DIS.WIDTH-SD 45.8 % (39-53); RED BLOOD COUNT 4.72 M/uL (4.00-5.50); WHITE BLOOD COUNT 8.6 K/uL (4.1-10.2)
[2017-12-03 06:47] LABS: CHLORIDE 102 MEQ/L (99-109); CREATININE 0.8 MG/DL (0.6-1.3); GFR ESTIMATE (CALCULATED) > 59 mL/min/ (58.99-99999); GLUCOSE 86 mg/dL (70-99); POTASSIUM 3.9 MEQ/L (3.7-5.4); SODIUM 139 MEQ/L (136-147); UREA NITROGEN (BUN) 15 mg/dL (9-23)
[2017-12-03 08:03] VITALS: BP 119/82
[2017-12-03 11:44] VITALS: BP 116/80
[2017-12-03] MEDS ORDERED: LOPRESSOR50 MG PO (14:28)
[2017-12-03] MEDS ORDERED: VANCOMYCIN HCL1 GM IV (14:28)
[2017-12-03 15:19] VITALS: BP 107/79
== END 2017-12-03 18:30 | DRG 309 ==
LOC: EME 07:53 → EDOF 10:52 → 4EAST 10:52 → ENRESERV 12-02 17:06 → 5SOUTH 12-02 18:12
PROVIDERS: Emergency Medicine; Hospitalist; Internal Medicine
DX: I48.0 Paroxysmal atrial fibrillation (principal); R78.81 Bacteremia; E11.9 Type 2 diabetes mellitus without complications; L12.0 Bullous pemphigoid; E03.9 Hypothyroidism, unspecified; F41.9 Anxiety disorder, unspecified; H91.90 Unspecified hearing loss, unspecified ear; J44.9 Chronic obstructive pulmonary disease, unspecified; I10 Essential (primary) hypertension; D64.9 Anemia, unspecified; E66.9 Obesity, unspecified; H91.10 Presbycusis, unspecified ear; B95.62 Methicillin resistant Staphylococcus aureus infection as the cause of diseases classified elsewhere; L29.9 Pruritus, unspecified; T36.1X5A Adverse effect of cephalosporins and other beta-lactam antibiotics, initial encounter; Y92.238 Other place in hospital as the place of occurrence of the external cause; M48.061 Spinal stenosis, lumbar region without neurogenic claudication; Z79.4 Long term (current) use of insulin; Z86.718 Personal history of other venous thrombosis and embolism; Z87.891 Personal history of nicotine dependence; Z86.711 Personal history of pulmonary embolism; Z86.14 Personal history of Methicillin resistant Staphylococcus aureus infection; Z79.01 Long term (current) use of anticoagulants; Z68.35 Body mass index [BMI] 35.0-35.9, adult; Z99.3 Dependence on wheelchair; Z93.0 Tracheostomy status; Z82.5 Family history of asthma and other chronic lower respiratory diseases; Z83.3 Family history of diabetes mellitus; Z93.3 Colostomy status
CPT/HCPCS: 71045; 72158; 74018; 76937; 80048; 80053; 80202; 81003; 82948; 84484; 85025; 85027; 85610; 85730; 87040; 87077; 87086; 87147; 87186; 87641; 87801; 92526 GN; 92610 GN; 93005; 93306; 94640; 97530 GO; 97530 GP; 99281; 99285; C1894; J0692; J1200; J1815; J1885; J1956; J2405; J2920; J3370; J7030; J7040; J7050; J7512